=== PATIENT | male | born 1965 | race African-American/Black ===

== ENCOUNTER 2020-01-25 11:56 | Emergency (ER) | payer MEDICAID, OTHER ==
[~2020-01-25] VITALS: Ht 175.3 cm; Wt 68.0 kg
[2020-01-25 14:06] LABS: Basophils # (auto) 0 10 ^3/uL (0-0.2); Basophils % (auto) 0.2 % (0.0-2.0); Eosinophils # (auto) 0 10 ^3/uL (0-0.8); Hematocrit 40.8 % (41.0-53.0); Hemoglobin 13.9 g/dL (13.5-17.5); Lymphocytes % (auto) 15.6 % (10.0-50.0); Mean Corpuscular Hemoglobin 30.7 pg (28.0-32.0); Mean Corpuscular Hgb Conc. 34.1 g/dL (32.0-36.0); Mean Corpuscular Volume 90.1 fL (80.0-100.0); Monocytes # (auto) 0.8 10 ^3/uL (0-1.3); Monocytes % (auto) 11.5 % (0.0-12.0); Neutrophils # (auto) 4.9 10 ^3/uL (1.6-8.6); Neutrophils % (auto) 72.7 % (37.0-80.0); Nucleated Red Blood Cells % 0.1 %; Platelet Count (auto) 148 10^3/uL (140-450); Red Blood Cells 4.52 10^6/uL (4.5-5.90); Red Cell Distribution Width 12.4 % (11.8-14.3); White Blood Cell 6.7 10^3/uL (4.4-10.8)
[2020-01-25 14:15] LABS: Albumin 3.4 g/dL (3.4-5.0); Anion Gap 9 (5-15); Blood Urea Nitrogen 11 mg/dL (7-18); Calcium 8.2 mg/dL (8.5-10.1); Carbon Dioxide 25 mmol/L (21-32); Chloride 97 mmol/L (98-107); Glucose 352 mg/dL (74-106); Potassium 3.5 mmol/L (3.5-5.1); Sodium 131 mmol/L (136-145)
[2020-01-25 14:23] LABS: Alanine Aminotransferase 24 U/L (16-61); Alkaline Phosphatase 96 U/L (45-117); Aspartate Aminotransferase 29 U/L (15-37); BUN/Creatinine Ratio 5.6; Bilirubin, Total 0.6 mg/dL (0.2-1.0); GFR African American 46 mL/min; GFR Non-African American 38 mL/min; INR 1.17 (0.9-1.15); Partial Thromboplastin Time 30.9 sec (23.64-32.05)
[2020-01-25] MEDS ORDERED: SODIUM CHLORIDE 0.9% 1,000 ML IV ONE (14:30)
[2020-01-25 18:13] VITALS: BP 109/62
== END 2020-01-25 18:22 | disposition home or self-care (01) ==
LOC: ER 11:56
DX: R53.1 Weakness (principal); R05 Cough; R09.81 Nasal congestion; R51 Headache; E11.9 Type 2 diabetes mellitus without complications; Z87.891 Personal history of nicotine dependence
CPT/HCPCS: 36415; 70450; 71046; 80053; 84484; 85025; 85610; 85730

== ENCOUNTER 2025-08-03 06:47 | Inpatient (IN) | payer MEDICAID ==
[~2025-08-03] VITALS: Ht 177.8 cm; Wt 63.7 kg
[~2025-08-03 06:47] MED LIST: IBUP-1456 PO
--- NOTE | 2025-08-03 07:07 | ECG ---
[facility] Test Date: 2025-08-03 Test Time: 06:51:50 Pat Name: REJI WELLS Department: Room: 0251T Gender: M Instrumentation Manager: SHUKRI : 1965 Requested By: REINALDO ALCANTAR Order Number: [id number] Reading MD: Russell Nugent Measurements Intervals [place] Rate: 83 P: 83 RI: 161 QRS: -74 QRSD: 99 T: 31 QT: 381 QTc: 448 Interpretive Statements Sinus rhythm Left anterior fascicular block Abnormal R-wave progression, late transition Electronically Signed On 08-10-2025 18:55:41 PDT by Russell Nugent Please click the below link to view image of tracing.
--- NOTE | 2025-08-03 07:14 | ED.PDOC ---
History of Present Illness HPI Comments 60 year old male presents to the ED via EMS with a chief complaint of generalized weakness onset 2 days. Per EMS, patient has been experiencing generalized weakness for the past 2 days. This morning he woke up on the floor, was having difficulty getting up, does not recall how he got on the floor. Family called 911, due to patient not recalling events. PMHx DM, hypotension, liver disease, anemia. Denies fever, chills, numbness/tingling, chest pain, nausea, vomiting, diarrhea, headache, dysuria, hematuria. No other symptoms or modifying factors present at this time. Chief Complaint: General Weakness Time Seen by MD: 06:50 Reviewed Notes: Medications, Allergies Allergies: Coded Allergies: NO KNOWN ALLERGIES (Unverified , 01/25/20) Home Meds Active Scripts Ibuprofen (Ibuprofen) 800 Mg Tab, 1 TAB PO TID PRN, #30 TAB 0 Refills Prov:MARY BARNES 10/22/22 Information Source: Patient, Emergency Med Personnel Mode of Arrival: EMS Severity: Moderate Timing: Days Duration: Since onset Prehospital treatment: None Past Medical History PAST MEDICAL HISTORY: Anemia, DM, Hypotension, Liver Surgical History: Denies all surgeries Family History Family History: Unknown Family History (Other): Lupus Social History Smoker: Quit Less Than 1 Year Alcohol: Occasionally Drugs: Denies Drug Use Lives In: Home Constitutional: reports: weakness; denies: chills, diaphoresis, fatigue, fever, malaise, sweats, others EENTM: denies: blurred vision, double vision, ear bleeding, ear discharge, ear drainage, ear pain, ear ringing, eye pain, eye redness, hearing loss, mouth keshav n, mouth swelling, nasal discharge, nose bleeding, nose congestion, nose pain, photophobia, tearing, throat pain, throat swelling, voice changes, others Respiratory: denies: cough, hemoptysis, orthopnea, SOB at rest, shortness of breath, SOB with excertion, stridor, wheezing, others Cardiovascular: denies: chest pain, dizzy spells, diaphoresis, Dyspnea on exertion, edema, irregular heart beat, left arm pain, lightheadedness, palpitations, PND, syncope, others Gastrointestinal: denies: abdomen distended, abdominal pain, blood streaked bowels, constipated, diarrhea, dysphagia, difficulty swallowing, hematemesis, melena, nausea, poor appetite, poor fluid intake, rectal bleeding, rectal pain, vomiting, others Genitourinary: denies: burning, dysuria, flank pain, frequency, hematuria, incontinence, penile discharge, penile sore, pain, testicle pain, testicle swelling, urgency, others Neurological: reports: weakness; denies: dizziness, fainting, headache, left sided numbness, left sided weakness, numbness, paresthesia, pre-existing deficit, right sided numbness, right sided weakness, seizure, speech problems, tingling, tremors, others Musculoskeletal: denies: back pain, gout, joint pain, joint swelling, muscle pain, muscle stiffness, neck pain, others Integumetry: denies: bruises, change in color, change in hair/nails, dryness, laceration, lesions, lumps, rash, wounds, others Allergic/Immunocompromised: denies: Difficulty Healing, Frequent Infections, Hives, Itching, others Hematologic/Lymphatic: denies: anemia, blood clots, easy bleeding, easy bruising, swollen glands, others Endocrine: denies: excessive hunger, excessive sweating, excessive thirst, excessive urination, flushing, intolerance to cold, intolerance to heat, unexplained weight gain, unexplained weight loss, others Psychiatric: denies: anxiety, bipolar disorder, depression, hopeless, panic disorder, schizophrenia, sleepless, suicidal, others All Other Systems: Reviewed and Negative Physical Exam General Appearance: Moderate Distress, Thin HEENT: Normal ENT Inspection, Pharynx Normal, TMs Normal Neck: Full Range of Motion, Non-Tender, Normal, Normal Inspection Respiratory: Chest Non-Tender, Lungs Clear, No Accessory Muscle Use, No Respiratory Distress, Normal Breath Sounds Cardiovascular: No Edema, No JVD, No Murmur, No Gallop, Normal Peripheral Pulses, Regular Rate/Rhythm Breast Exam: Deferred Gastrointestinal: No Organomegaly, Non Tender, No Pulsatile Mass, Normal Bowel Sounds, Soft Genitalia: Deferred Pelvic: Deferred Rectal: Deferred Extremities: No calf tenderness, Normal capillary refill, Normal inspection, Normal range of motion, Non-tender, No pedal edema Musculoskeletal : Apperance: Normal Neurologic: Alert, refrigeration lead II-XII nml as Tested, No Motor Deficits, Normal Affect, Normal Mood, No Sensory Deficits Cerebellar Function: NOT DONE Reflexes: NOT DONE Skin: Dry, Normal Color, Warm Peripheral Pulses: 3+ Radial (R), 3+ Radial (L) Lymphatic: No Adenopathy Was a procedure done? Was a procedure done?: No EKG EKG : Pulse Rate (adult): 83 Cardiac Rhythm: NSR Differential Dx Considerations may include: Anemia Electrolyte imbalance X-Ray, Labs, Meds, VS Vital Signs Date Time Temp Pulse Resp B/P (MAP) Pulse Ox O2 Delivery O2 Flow Rate FiO2 08/03/25 07:41 84 19 99 Room Air* 0 21 08/03/25 07:14 83 08/03/25 06:51 98.0 89 16 149/89 96 98.0 08/03/25 06:51 83 Lab Test 08/03/25 07:26 Range/Units White Blood Count Pending Red Blood Count Pending Hemoglobin Pending Hematocrit Pending Mean Corpuscular Volume Pending Mean Corpuscular Hemoglobin Pending Mean Corpuscular Hemoglobin Concent Pending Red Cell Distribution Width Pending Platelet Count Pending Mean Platelet Volume Pending Neutrophils (%) (Auto) Pending Lymphocytes (%) (Auto) Pending Monocytes (%) (Auto) Pending Basophils (%) (Auto) Pending Neutrophils # (Auto) Pending Lymphocytes # (Auto) Pending Monocytes # (Auto) Pending Sodium Level 114 *L 136-145 mmol/L Potassium Level 3.9 3.5-5.1 mmol/L Chloride Level 79 L 98-107 mmol/L Carbon Dioxide Level 27 20-31 mmol/L Anion Gap 8 5-15 Blood Urea Nitrogen < 5 L 9-23 mg/dL Creatinine 1.02 0.700-1.30 mg/dL Glomerular Filtration Rate Calc 83 >90 mL/min BUN/Creatinine Ratio 4.9 L 10.0-20.0 Serum Glucose 160 H 74-106 mg/dL Calcium Level 8.6 L 8.7-10.4 mg/dL Troponin I High Sensitivity 9 </=54 ng/L Patient alert. Complaining of generalized weakness unable to get out of bed. Vitals stable. Answering all questions. Establish intravenous access. Was given fluids. Continue monitoring. Time of 1ST Reevaluation: 07:20 Reevaluation 1ST: Unchanged Patient Education/Counseling: Diagnosis, Treatment, Prognosis Family Education/Counseling: No Family Present SEPSIS Sepsis Screen Date sepsis recognized/suspect: Aug 03, 2025 Time Sepsis recognized/suspect: 0656 Recent Procedure: No On Antibiotic Therapy: No Respiratory Rate >20: No Heart Rate >90: No Temp<36 C (96.8 F) or >38.3 C: No SBP <90 or MAP <65 mmHG: No New Acute Mental Status Change: No Is the patient on CPAP, BIPAP,: No Physician Orders Electrocardigram (08/03/25 07:57) Electrocardigram (08/03/25 09:57) Complete Blood Count (08/03/25 06:59) Vital Signs Date Time Temp Pulse Resp B/P (MAP) Pulse Ox O2 Delivery O2 Flow Rate FiO2 08/03/25 07:41 84 19 99 Room Air* 0 21 08/03/25 07:14 83 08/03/25 06:51 98.0 89 16 149/89 96 98.0 08/03/25 06:51 83 Laboratory Tests Test 08/03/25 07:26 White Blood Count Pending Departure 1 Departure Time of Disposition: 07:27 Impression: Primary Impression: Hyponatremia Additional Impression: Generalized weakness Disposition: ADMITTED INPATIENT Admit to: Med Surg Condition: Guarded Critical Care Note Critical Care Time?: No Stability Stability form required: No Heart Score Heart Score: Heart Score Response (Comments) Value History Slightly Suspicious 0 EKG Normal 0 Age 45-64 1 Risk Factors 1 or 2 risk factors 1 Troponin Normal limit 0 Total 2 I personally scribed for REINALDO ALCANTAR MD ([email or web address]) on 08/03/25 at 07:14. Electronically submitted by Chichi Chew ([email or web address]). REINALDO ALCANTAR MD Aug 03, 2025 07:14
[2025-08-03 07:41] VITALS: PULSE 84; RESP 19; O2SAT 99
[2025-08-03 07:46] LABS: Anion Gap 8 (5-15); Carbon Dioxide 27 mmol/L (20-31); Potassium 3.9 mmol/L (3.5-5.1)
[2025-08-03 07:53] LABS: BUN/Creatinine Ratio 4.9 (10.0-20.0); Blood Urea Nitrogen < 5 mg/dL (9-23); Calcium 8.6 mg/dL (8.7-10.4); Chloride 79 mmol/L (98-107); Glucose 160 mg/dL (74-106)
[2025-08-03 07:54] LABS: Sodium 114 mmol/L (136-145)
[2025-08-03 07:58] LABS: Hematocrit 35.6 % (41.0-53.0); Hemoglobin 12.9 g/dL (13.5-17.5); Mean Corpuscular Hemoglobin 33.3 pg (28.0-32.0); Mean Corpuscular Volume 91.9 fL (80.0-100.0); Nucleated Red Blood Cells % 0.2 %
[2025-08-03] MEDS: SODIUM CHLORIDE 0.9% 1,000 ML IV ONE ×2 (08:03→09:02)
--- NOTE | 2025-08-03 09:23 | DVHHP2 ---
Admitting Diagnosis: Generalized weakness History of Present Illness 60 y/o male patient with history of hypotension, diabetes, liver disease, anemia presents with complaint of generalized weakness. Patient states he woke up on the floor this morning and had difficulty getting up, which prompted family to call EMS. While in the emergency department the patient was evaluated by the provider, As per provider: Labs, vital signs, and imagining monitored. Patient will be admitted for further evaluation and treatment. I discussed admission with the patient/family and is in agreement to treatment plan. Allergies: Coded Allergies: NO KNOWN ALLERGIES (Unverified , 01/25/20) Home Meds Active Scripts Ibuprofen (Ibuprofen) 800 Mg Tab, 1 TAB PO TID PRN, #30 TAB 0 Refills Prov:MARY BARNES 10/22/22 Current Medications Current Medications Medications (Trade) Dose Ordered Sig/Slim Route PRN Reason Start Time Stop Time Status Last Admin Sodium Chloride 1,000 ml @ 120 mls/hr Q8H20M IV 08/03/25 09:30 08/03/25 13:13 DC 08/03/25 09:30 Acetaminophen/ Hydrocodone Bitart (Meridian 5/325MG Tab) 1 tab Q4HP PRN PO MODERATE PAIN (4-6 PAIN SCALE) 08/03/25 09:30 Temazepam (Restoril) 15 mg QHSP PRN PO FOR INSOMNIA 08/03/25 09:30 Ondansetron HCl (Zofran) 4 mg Q4HP PRN IV NAUSEA / VOMITING 08/03/25 09:30 Docusate Sodium (Colace Capsule) 100 mg BIDPRN PRN PO FOR CONSTIPATION 08/03/25 09:30 Enoxaparin Sodium (Lovenox) 40 mg DAILY SC 08/03/25 10:00 08/03/25 11:02 Acetaminophen (Tylenol Tablet) 650 mg Q6HP PRN PO PAIN SCALE 1-3 OR TEMP>100.4 08/03/25 09:30 Morphine Sulfate 2 mg Q4HPRN PRN IV SEVERE PAIN (7-10 PAIN SCALE) 08/03/25 09:30 Nitroglycerin (Ntrostat Sublingual) 0.4 mg Q5MINP PRN SL FOR CHEST PAIN 08/03/25 09:30 Morphine Sulfate 2 mg Q30M PRN IV FOR CHEST PAIN 08/03/25 09:30 Diagnostic Test (Pha) (Accu-Chek Comfort Curve T) 1 strip ACHS 08/03/25 11:30 08/03/25 14:36 DC 08/03/25 13:25 Insulin Human Regular (InsuLIN R) HS SC 08/03/25 22:00 08/03/25 14:48 DC Insulin Human Regular (InsuLIN R) AC SC 08/03/25 11:30 08/03/25 13:13 DC Dextrose 50 ml UD PRN IV Blood Sugar LESS THAN 60 08/03/25 09:30 08/03/25 14:36 DC Famotidine (Pepcid Tablet) 40 mg DAILY PO 08/03/25 10:00 08/03/25 11:02 Furosemide (Lasix Injection) 40 mg BID IV 08/03/25 10:00 08/04/25 22:01 Sodium Chloride 1,000 ml @ 75 mls/hr [id number] IV 08/03/25 13:15 08/03/25 13:15 Diagnostic Test (Pha) (Accu-Chek Comfort Curve T) 1 strip IQ4HR 08/03/25 16:00 08/03/25 20:44 Insulin Human Regular (InsuLIN R) IQ4HR SC 08/03/25 16:00 08/03/25 16:15 Dextrose 50 ml UD PRN IV Blood Sugar LESS THAN 60 08/03/25 13:15 Review of Systems Constitutional: denies chills, denies fever, denies malaise Eyes: denies eye pain, denies vision change ENT: denies ear pain, denies headache, denies nasal congestion, denies painful swallowing, denies voice change Cardiovascular: denies chest pain, denies edema, denies orthopnea, denies palpitations, denies paroxysmal nocturnal dyspnea Respiratory: denies cough, denies shortness of breath Gastrointestinal: denies constipation, denies diarrhea, denies nausea, denies vomiting Genitourinary: denies dysuria, denies frequent urination, denies urethral discharge Musculoskeletal: denies back pain, denies joint pain, denies muscle pain Skin: denies bruising, denies itching, denies rash Neurological: denies focal weakness, denies headache, denies sensory changes Psychiatric: denies anxiety, denies depression Endocrine: denies polydipsia, denies polyuria Hematologic/Lymphatic: denies easy bleeding, denies easy bruising, denies enlarged lymph nodes Allergic/Immunologic: denies allergy, denies hives Vital Signs Vital Signs Date Time Temp Pulse Resp B/P (MAP) Pulse Ox O2 Delivery O2 Flow Rate FiO2 08/03/25 19:20 98 18 98 Room Air* 0 21 08/03/25 19:20 98.1 132/79 (96) 98.1 Physical Exam General Appearance: alert, no distress HEENT: EOMI, PERRLA, normal external inspect of ears, no icterus, no nasal drainage Neck: no carotid bruit, no jugular venous distention (JVD), no lymphadenopathy Chest: normal thorax Respiratory: clear to auscultation, normal air movement Cardiovascular: regular rate and rhythm, no diastolic murmur, no jugular venous distention (JVD), no rub, no systolic murmur Abdominal: soft, no hepatomegaly, no mass, no splenomegaly, no tenderness Genitourinary: grossly normal external Musculoskeletal: no joint tenderness, no swelling Extremities: normal pulses, no calf tenderness, no clubbing, no cyanosis, no edema Skin: no bruising, no jaundice, no rash Neurological: alert, No focal deficit SEPSIS Sepsis Screen Date sepsis recognized/suspect: Aug 03, 2025 Time Sepsis recognized/suspect: 655 Recent Procedure: No On Antibiotic Therapy: No Respiratory Rate >20: No Heart Rate >90: No Temp<36 C (96.8 F) or >38.3 C: No SBP <90 or MAP <65 mmHG: No New Acute Mental Status Change: No Is the patient on CPAP, BIPAP,: No Physician Orders Electrocardigram (08/03/25 07:57) Electrocardigram (08/03/25 09:57) Admit (08/03/25 09:18) Code Status (08/03/25 09:18) Oxygen Per Hour (08/03/25 09:18) Hydrocodone-Acet 5/325mg Tab (Meridian 5/32 (08/03/25 09:30) Temazepam (Restoril) (08/03/25 09:30) Ondansetron Hcl (Zofran) (08/03/25 09:30) Docusate Sodium Capsule (Colace Capsule) (08/03/25 09:30) Enoxaparin Sodium (Lovenox) (08/03/25 10:00) Fall Risk Precautions In Place QSHIFT (08/03/25 09:18) Complete Blood Count (08/04/25 04:00) Comprehensive Metabolic Panel (08/04/25 04:00) Condition: Serious (08/03/25 09:18) Acetaminophen Tablet (Tylenol Tablet) (08/03/25 09:30) Morphine Sulfate Injection (08/03/25 09:30) Sequential Compression Device (08/03/25 ) Seizure Precautions (08/03/25 ) *[facility] (08/03/25 09:18) Nitroglycerin Sublingual (Ntrostat Subli (08/03/25 09:30) Morphine Sulfate Injection (08/03/25 09:30) Stat Ekg For Chest Pain (08/03/25 09:18) Notify Md Of Changes From Base (08/03/25 09:18) Wet Finisher For 24 Hours (08/03/25 09:18) Emergency Dysrhythmia Protocol (08/03/25 09:18) Rhythm Strips Once Every Shift (08/03/25 09:18) Oxygen By Nasal Cannula (08/03/25 09:18) Regular Diet (08/03/25 Breakfast) Famotidine Tablet (Pepcid Tablet) (08/03/25 10:00) Communication Order (08/03/25 09:43) Furosemide Injection (Lasix Injection) (08/03/25 10:00) Hepatitis C Antibody (08/03/25 12:17) Hepatitis B Surface Antigen (08/03/25 12:17) Sodium Chloride 0.9% (08/03/25 13:15) Glucose Blood (Accu-Chek Comfort Curve T (08/03/25 16:00) Insulin R (Human) (Insulin R) (08/03/25 16:00) Dextrose 50% Syringe (08/03/25 13:15) Moving Worker (08/03/25 ) Vital Signs Date Time Temp Pulse Resp B/P (MAP) Pulse Ox O2 Delivery O2 Flow Rate FiO2 08/03/25 19:20 98 18 98 Room Air* 0 21 08/03/25 19:20 98.1 98 18 132/79 (96) 98 98.1 08/03/25 18:00 113 16 132/76 (94) 97 08/03/25 16:43 84 08/03/25 16:00 84 16 166/91 (116) 97 08/03/25 14:00 91 18 164/91 (115) 97 08/03/25 12:00 91 08/03/25 12:00 98.3 91 19 117/71 (86) 97 98.3 08/03/25 12:00 91 08/03/25 10:00 97.7 83 19 92/70 (77) 97 97.7 08/03/25 10:00 92/70 08/03/25 09:30 97.9 88 16 92/70 (77) 98 97.9 08/03/25 09:30 85 20 98 Room Air* 0 21 08/03/25 08:00 98.3 83 19 144/85 (104) 97 98.3 08/03/25 07:41 84 19 99 Room Air* 0 21 08/03/25 07:14 83 08/03/25 06:51 98.0 89 16 149/89 96 98.0 08/03/25 06:51 83 Laboratory Tests Test 08/03/25 07:26 White Blood Count 4.4 10^3/uL (4.4-10.8) Medications Medications Dose Ordered Sig/Slim Route Start Time Stop Time Status Last Admin Dose Admin Diagnostic Test (Pha) 1 strip ACHS 08/03/25 11:30 08/03/25 14:36 DC 08/03/25 13:25 Diagnostic Test (Pha) 1 strip IQ4HR 08/03/25 16:00 08/03/25 20:44 Enoxaparin Sodium 40 mg DAILY SC 08/03/25 10:00 08/03/25 11:02 Famotidine 40 mg DAILY PO 08/03/25 10:00 08/03/25 11:02 Insulin Human Regular IQ4HR SC 08/03/25 16:00 08/03/25 16:15 Sodium Chloride 1,000 ml @ 75 mls/hr [id number] IV 08/03/25 13:15 08/03/25 13:15 Results Labs Test 08/03/25 16:05 08/03/25 15:19 08/03/25 13:30 08/03/25 12:59 Range/Units POC Glucose 246 H 70-106 mg/dl Parathyroid Hormone (Intact) 105.4 H 18.4-80.1 pg/mL Urine Color Colorless Yellow Urine Clarity Clear Clear Urine pH 6.5 5.0-9.0 Urine Specific [place] 1.005 1.001-1.035 Urine Protein Negative Negative Urine Ketones Trace Negative Urine Blood Negative Negative /uL Urine Nitrite Negative Negative Urine Bilirubin Negative Negative Urine Urobilinogen Normal Negative mg/dL Urine Leukocyte Esterase Negative Negative /uL Urine RBC None seen 0 - 3 /hpf Urine Microscopic WBC < 1 0-3 /HPF Urine Squamous Epithelial Cells None seen <5 /hpf Urine Bacteria None seen None Seen /hpf Urine Creatinine 29.38 L 30.0-125.0 mg/dL Urine Protein/Creatinine Ratio 0.20 Urine Sodium 43 40-220 mmol/L Urine Glucose Normal Normal mg/dL Urine Total Protein < 6.0 1-14 mg/dL Urine Opiates Screen Neg NEGATIVE Urine Fentanyl Screen Neg NEGATIVE Urine Barbiturates Screen Neg NEGATIVE Urine Phencyclidine Screen Neg NEGATIVE Urine Amphetamines Screen Neg NEGATIVE Urine Benzodiazepines Screen Neg NEGATIVE Urine Cocaine Screen Neg NEGATIVE Urine Cannabinoids Screen Neg NEGATIVE Sodium Level 119 #*L 136-145 mmol/L Potassium Level 3.7 3.5-5.1 mmol/L Chloride Level 83 L 98-107 mmol/L Carbon Dioxide Level 27 20-31 mmol/L Anion Gap 9 5-15 Blood Urea Nitrogen 6 L 9-23 mg/dL Creatinine 1.00 0.700-1.30 mg/dL Glomerular Filtration Rate Calc 85 >90 mL/min BUN/Creatinine Ratio 6.0 L 10.0-20.0 Serum Glucose 198 H 74-106 mg/dL Hemoglobin A1c 8.3 H <5.7 % A1C Serum Osmolality 248 L 278-298 mOsm/kg Calcium Level 8.3 L 8.7-10.4 mg/dL Phosphorus Level 2.8 2.4-5.1 mg/dL Magnesium Level 1.5 L 1.6-2.6 mg/dL Creatine Kinase 1328 H 46-171 U/L B-Type Natriuretic Peptide 29.93 0-100 pg/mL Vitamin D 25-Hydroxy 7.8 L 30.0-100 ng/mL Plasma/Serum Blood Alcohol < 3.0 <10 mg/dL Test 08/03/25 07:26 Range/Units White Blood Count 4.4 4.4-10.8 10^3/uL Red Blood Count 3.87 L 4.5-5.90 10^6/uL Hemoglobin 12.9 L 13.5-17.5 g/dL Hematocrit 35.6 L 41.0-53.0 % Mean Corpuscular Volume 91.9 80.0-100.0 fL Mean Corpuscular Hemoglobin 33.3 H 28.0-32.0 pg Mean Corpuscular Hemoglobin Concent 36.2 H 32.0-36.0 g/dL Red Cell Distribution Width 14.8 H 11.8-14.3 % Platelet Count 103 L 140-450 10^3/uL Mean Platelet Volume 7.7 6.9-10.8 fL Neutrophils (%) (Auto) 43.5 37.0-80.0 % Lymphocytes (%) (Auto) 39.4 10.0-50.0 % Monocytes (%) (Auto) 12.8 H 0.0-12.0 % Eosinophils (%) (Auto) 2.9 0.0-7.0 % Basophils (%) (Auto) 1.4 0.0-2.0 % Neutrophils # (Auto) 1.9 1.6-8.6 10 ^3/uL Lymphocytes # (Auto) 1.7 0.4-5.4 10 ^3/uL Monocytes # (Auto) 0.6 0-1.3 10 ^3/uL Eosinophils # (Auto) 0.1 0-0.8 10 ^3/uL Basophils # (Auto) 0.1 0-0.2 10 ^3/uL Nucleated Red Blood Cells 0.2 % Troponin I High Sensitivity 9 </=54 ng/L Plan 1. Hyponatremia Monitor, daily labs 2. Generalized weakness r/t hyponatremia Monitor, PT eval 3. DM II with hyperglycemia Monitor, insulin ss Plan discussed with: Patient, Other BLAZE BARRON NP Aug 03, 2025 09:23
[2025-08-03 09:30] VITALS: PULSE 85; RESP 20; O2SAT 98
[2025-08-03] MEDS ORDERED: ONDANSETRON HCL 4 MG/2 ML VIAL IV PRN (09:30)
[2025-08-03] MEDS ORDERED: DEXTROSE (50%) 50ML SYRG IV PRN ×2 (09:30→13:15)
[2025-08-03] MEDS ORDERED: DOCUSATE SOD 100 MG CAP PO PRN (09:30)
[2025-08-03] MEDS ORDERED: MORPHINE SULFATE INJ 2 MG/ml SYRG IV PRN ×2 (09:30)
[2025-08-03] MEDS ORDERED: ACETAMINOPHEN 325 MG TAB PO PRN (09:30)
[2025-08-03] MEDS: SODIUM CHLORIDE 0.9% 1,000 ML IV SCH ×2 (09:30→13:15)
[2025-08-03] MEDS ORDERED: NITROGLYCERIN 0.4 MG SL TAB SL PRN (09:30)
[2025-08-03] MEDS ORDERED: TEMAZEPAM 15 MG CAP PO PRN (09:30)
[2025-08-03] MEDS: FUROSEMIDE 40 MG/4 ML VIAL IV SCH (10:00)
[2025-08-03] MEDS: ENOXAPARIN SOD 40 MG/0.4 ML SYRINGE SC SCH (11:02)
[2025-08-03] MEDS: FAMOTIDINE 20 MG TAB PO SCH (11:02)
[2025-08-03] MEDS: InsuLIN REG 1unit/0.01ml Soln (100units/ml) SC SCH ×2 (11:30→16:15)
[2025-08-03] MEDS: ACCU-CHEK COMFORT CURVE STRIP VI SCH ×2 (11:38→16:07)
--- NOTE | 2025-08-03 12:24 | DVHINCON2 ---
Date of service: Aug 03, 2025 Referring Physician Shannan Diehl, nurse practitioner Reason for Consultation Hyponatremia History of Present Illness Patient is a 60-year-old male with past medical history significant for Anemia, DM, Hypotension, seizures, and alcoholic liver cirrhosis is admitted for generalized weakness inability to get up from the floor and diarrhea for few days. On admission patient found to have serum sodium was 114 mEq per L. in the ER patient was given 3% sodium chloride and normal saline IV bolus nephrology is consulted to help in the management of hyponatremia Past Medical History PAST MEDICAL HISTORY: Anemia, DM, Hypotension, alcoholic Liver cirrhosis, seizure Past Surgical History Surgical History: Denies all surgeries Allergies: Coded Allergies: NO KNOWN ALLERGIES (Unverified , 01/25/20) Home Meds Active Scripts Ibuprofen (Ibuprofen) 800 Mg Tab, 1 TAB PO TID PRN, #30 TAB 0 Refills Prov:MARY BARNES 10/22/22 Current Medications Current Medications Medications (Trade) Dose Ordered Sig/Slim Route PRN Reason Start Time Stop Time Status Last Admin Sodium Chloride 1,000 ml @ 120 mls/hr Q8H20M IV 08/03/25 09:30 08/03/25 13:13 DC 08/03/25 09:30 Acetaminophen/ Hydrocodone Bitart ([place] 5/325MG Tab) 1 tab Q4HP PRN PO MODERATE PAIN (4-6 PAIN SCALE) 08/03/25 09:30 Temazepam (Restoril) 15 mg QHSP PRN PO FOR INSOMNIA 08/03/25 09:30 Ondansetron HCl (Zofran) 4 mg Q4HP PRN IV NAUSEA / VOMITING 08/03/25 09:30 Docusate Sodium (Colace Capsule) 100 mg BIDPRN PRN PO FOR CONSTIPATION 08/03/25 09:30 Enoxaparin Sodium (Lovenox) 40 mg DAILY SC 08/03/25 10:00 08/03/25 11:02 Acetaminophen (Tylenol Tablet) 650 mg Q6HP PRN PO PAIN SCALE 1-3 OR TEMP>100.4 08/03/25 09:30 Morphine Sulfate 2 mg Q4HPRN PRN IV SEVERE PAIN (7-10 PAIN SCALE) 08/03/25 09:30 Nitroglycerin (Ntrostat Sublingual) 0.4 mg Q5MINP PRN SL FOR CHEST PAIN 08/03/25 09:30 Morphine Sulfate 2 mg Q30M PRN IV FOR CHEST PAIN 08/03/25 09:30 Diagnostic Test (Pha) (Accu-Chek Comfort Curve T) 1 strip ACHS 08/03/25 11:30 08/03/25 11:38 Insulin Human Regular (InsuLIN R) HS SC 08/03/25 22:00 Insulin Human Regular (InsuLIN R) AC SC 08/03/25 11:30 08/03/25 13:13 DC Dextrose 50 ml UD PRN IV Blood Sugar LESS THAN 60 08/03/25 09:30 Famotidine (Pepcid Tablet) 40 mg DAILY PO 08/03/25 10:00 08/03/25 11:02 Furosemide (Lasix Injection) 40 mg BID IV 08/03/25 10:00 08/04/25 22:01 Sodium Chloride 1,000 ml @ 75 mls/hr [id number] IV 08/03/25 13:15 UNV Diagnostic Test (Pha) (Accu-Chek Comfort Curve T) 1 strip IQ4HR 08/03/25 16:00 UNV Insulin Human Regular (InsuLIN R) IQ4HR SC 08/03/25 16:00 UNV Dextrose 50 ml UD PRN IV Blood Sugar LESS THAN 60 08/03/25 13:15 UNV Review of Systems All 12 item review of systems reviewed with the patient nonsignificant except what is mentioned in the history of present illness H&P Exam Vital Signs/I&O Vital Sign Date Time Temp Pulse Resp B/P (MAP) Pulse Ox O2 Delivery O2 Flow Rate FiO2 08/03/25 12:00 98.3 91 19 117/71 (86) 97 98.3 08/03/25 09:30 Room Air* 0 21 Physical Exam Patient is awake alert Lungs clear to auscultation bilaterally Cardiac exam regular rate and rhythm GI soft nontender was normal Extremities no clubbing cyanosis or edema Neuro nonfocal Labs/Diagnostic Data Labs/Diagnostic Data Laboratory Tests Test 08/03/25 11:38 08/03/25 07:26 Range/Units POC Glucose 230 H 70-106 mg/dl White Blood Count 4.4 4.4-10.8 10^3/uL Red Blood Count 3.87 L 4.5-5.90 10^6/uL Hemoglobin 12.9 L 13.5-17.5 g/dL Hematocrit 35.6 L 41.0-53.0 % Mean Corpuscular Volume 91.9 80.0-100.0 fL Mean Corpuscular Hemoglobin 33.3 H 28.0-32.0 pg Mean Corpuscular Hemoglobin Concent 36.2 H 32.0-36.0 g/dL Red Cell Distribution Width 14.8 H 11.8-14.3 % Platelet Count 103 L 140-450 10^3/uL Mean Platelet Volume 7.7 6.9-10.8 fL Neutrophils (%) (Auto) 43.5 37.0-80.0 % Lymphocytes (%) (Auto) 39.4 10.0-50.0 % Monocytes (%) (Auto) 12.8 H 0.0-12.0 % Eosinophils (%) (Auto) 2.9 0.0-7.0 % Basophils (%) (Auto) 1.4 0.0-2.0 % Neutrophils # (Auto) 1.9 1.6-8.6 10 ^3/uL Lymphocytes # (Auto) 1.7 0.4-5.4 10 ^3/uL Monocytes # (Auto) 0.6 0-1.3 10 ^3/uL Eosinophils # (Auto) 0.1 0-0.8 10 ^3/uL Basophils # (Auto) 0.1 0-0.2 10 ^3/uL Nucleated Red Blood Cells 0.2 % Sodium Level 114 *L 136-145 mmol/L Potassium Level 3.9 3.5-5.1 mmol/L Chloride Level 79 L 98-107 mmol/L Carbon Dioxide Level 27 20-31 mmol/L Anion Gap 8 5-15 Blood Urea Nitrogen < 5 L 9-23 mg/dL Creatinine 1.02 0.700-1.30 mg/dL Glomerular Filtration Rate Calc 83 >90 mL/min BUN/Creatinine Ratio 4.9 L 10.0-20.0 Serum Glucose 160 H 74-106 mg/dL Calcium Level 8.6 L 8.7-10.4 mg/dL Troponin I High Sensitivity 9 </=54 ng/L Assessment Hyponatremia due to dehydration History of alcoholic liver cirrhosis Diabetes mellitus type 2 Hypertension Anemia of chronic kidney disease Recommendations Closely monitor fluid and electrolytes Avoid nephrotoxic medications Pantoja catheter Strict I&Os Repeat serum sodium every 4 hours Avoid rapid sodium correction Decrease IVF to NS at 75 cc/hour KCL replacement Insulin sliding scale Check urine electrolytes, protein excretion and osmolarity Neurology consult We will continue to follow Patient seen and examined by myself. I discussed my plan of care with the patient and primary nurse at the bedside I would like to thank Shannan for the consult, will follow up Plan discussed with: Patient EVER DILLON MD Aug 03, 2025 12:24
[2025-08-03 14:07] LABS: Urine Protein, UAD Negative (Negative)
[2025-08-03 14:09] LABS: Carbon Dioxide 27 mmol/L (20-31)
[2025-08-03 14:14] LABS: Anion Gap 9 (5-15)
[2025-08-03 14:15] LABS: BUN/Creatinine Ratio 6.0 (10.0-20.0)
[2025-08-03 14:16] LABS: Chloride 83 mmol/L (98-107); Potassium 3.7 mmol/L (3.5-5.1)
[2025-08-03 14:17] LABS: Blood Urea Nitrogen 6 mg/dL (9-23); Calcium 8.3 mg/dL (8.7-10.4); Glucose 198 mg/dL (74-106); Sodium 119 mmol/L (136-145)
[2025-08-03 14:24] LABS: Magnesium 1.5 mg/dL (1.6-2.6)
[2025-08-03 18:17] LABS: Amphetamine Screen, Urine Neg (NEGATIVE); Barbiturate Scree,Urine Neg (NEGATIVE); Benzodiazephine Screen, Urine Neg (NEGATIVE); Cannabinoid Screen, Urine Neg (NEGATIVE); Cocaine Screen, Urine Neg (NEGATIVE); Opiate Scree,Urine Neg (NEGATIVE); Phencyclidine Screen, Urine Neg (NEGATIVE); Protein, Urine < 6.0 mg/dL (1-14)
[2025-08-03 19:20] VITALS: PULSE 98; RESP 18; O2SAT 98
[2025-08-03] MEDS: HYDROcodone-ACET 5/325MG TAB PO PRN (21:46)
[2025-08-03] MEDS ORDERED: InsuLIN REG 1unit/0.01ml Soln (100units/ml) SC SCH (22:00)
[2025-08-03 22:16] VITALS: PULSE 81; RESP 17; O2SAT 97
[2025-08-03 22:37] VITALS: BP 146/90; PULSE 87; RESP 17; TEMP 98.4; O2SAT 97
[2025-08-04] VITALS (8 sets, daily range): BP systolic 104–135; BP diastolic 69–78; PULSE 56–133; RESP 17–20; TEMP 97.8–98.7; O2SAT 93–100
--- NOTE | 2025-08-04 09:46 | DVHPN2 ---
Progress Note - Dictate Date Seen: Aug 04, 2025 Medical Necessity Reason Pt with a Central, PICC or Fol: No vital signs Vital Sign Date Time Temp Pulse Resp B/P (MAP) Pulse Ox O2 Delivery O2 Flow Rate FiO2 08/04/25 09:12 117/62 08/04/25 05:00 98.4 95 18 98 98.4 08/03/25 22:16 Room Air* 0 21 Total Intake and Output 08/03/25 08/03/25 08/04/25 15:00 23:00 07:00 Intake Total 1720 ml 240 ml Output Total 750 ml Balance 1720 ml -510 ml medications Current Medications Medications Dose Ordered Sig/Slim Route Start Time Stop Time Status Last Admin Dose Admin Acetaminophen/ Hydrocodone Bitart 1 tab Q4HP PRN PO 08/03/25 09:30 08/04/25 09:37 1 TAB Temazepam 15 mg QHSP PRN PO 08/03/25 09:30 Ondansetron HCl 4 mg Q4HP PRN IV 08/03/25 09:30 Docusate Sodium 100 mg BIDPRN PRN PO 08/03/25 09:30 Enoxaparin Sodium 40 mg DAILY SC 08/03/25 10:00 08/04/25 09:11 40 MG Acetaminophen 650 mg Q6HP PRN PO 08/03/25 09:30 Morphine Sulfate 2 mg Q4HPRN PRN IV 08/03/25 09:30 Nitroglycerin 0.4 mg Q5MINP PRN SL 08/03/25 09:30 Morphine Sulfate 2 mg Q30M PRN IV 08/03/25 09:30 Famotidine 40 mg DAILY PO 08/03/25 10:00 08/04/25 09:11 40 MG Furosemide 40 mg BID IV 08/03/25 10:00 08/04/25 22:01 Sodium Chloride 1,000 ml @ 75 mls/hr [id number] IV 08/03/25 13:15 08/04/25 01:00 75 MLS/HR Diagnostic Test (Pha) 1 strip IQ4HR 08/03/25 16:00 08/04/25 08:05 1 STRIP Insulin Human Regular IQ4HR SC 08/03/25 16:00 08/04/25 04:53 3 UNITS Dextrose 50 ml UD PRN IV 08/03/25 13:15 laboratory and microbiology Laboratory Tests 08/03/25 12:59 08/03/25 07:26 Test 08/03/25 12:59 Range/Units Serum Glucose 198 H 74-106 mg/dL Problem List 1. Hyponatremia Monitor, daily labs 2. Generalized weakness r/t hyponatremia Monitor, PT eval 3. DM II with hyperglycemia Monitor, insulin ss 4. Elevated CK level Monitor, trend and monitor renal function 5. Liver cirrhosis Monitor, monitor daily labs Assessment/Plan Subjective: Patient is awake and alert. Objective: Patient states he was very weak and that he was down on the ground for some time because he could not get up. Patient has severe hyponatremia. Patient states he drinks lots of water. Nephrology was consulted for assistance with severe hyponatremia. Unable to exclude if patient possibly had a seizure due to being found down on the ground. Patient does not really remember the events of that day. Patient also states he takes oral iron at home and he has neuropathy. Plan: Physical therapy evaluation for generalized weakness. Hyponatremia management per nephrology. Sodium levels are improving. And the DC planning in 1 to 2 days. Plan discussed with: Patient, Other BLAZE BARRON NP Aug 04, 2025 09:46
[2025-08-04] MEDS: MAGNESIUM SULFATE 1GM/100ML 100 ML IV SCH (10:36)
[2025-08-04 10:44] LABS: Hematocrit 32.5 % (41.0-53.0); Hemoglobin 11.7 g/dL (13.5-17.5); Mean Corpuscular Hemoglobin 33.7 pg (28.0-32.0); Mean Corpuscular Volume 93.8 fL (80.0-100.0); Nucleated Red Blood Cells % 0.1 %
[2025-08-04 10:59] LABS: Albumin 3.5 g/dL (3.2-4.8); Alkaline Phosphatase 77 U/L (46-116); Anion Gap 9 (5-15); Bilirubin, Total 0.7 mg/dL (0.2-1.0); Carbon Dioxide 27 mmol/L (20-31); Potassium 3.7 mmol/L (3.5-5.1); Total Protein 6.2 g/dL (5.7-8.2)
[2025-08-04 11:03] LABS: Alanine Aminotransferase 55 U/L (7-40); BUN/Creatinine Ratio 4.4 (10.0-20.0); Blood Urea Nitrogen < 5 mg/dL (9-23); Calcium 8.3 mg/dL (8.7-10.4); Chloride 91 mmol/L (98-107); Glucose 206 mg/dL (74-106); Sodium 127 mmol/L (136-145)
--- NOTE | 2025-08-04 11:52 | DVHPN2 ---
Progress Note Date Seen: Aug 04, 2025 Medical Necessity Reason Pt with a Central, PICC or Fol: No Subjective Patient reports: No new complaints Other Systems: Patient seen and examined by myself today in follow-up Objective vital signs Vital Sign Date Time Temp Pulse Resp B/P (MAP) Pulse Ox O2 Delivery O2 Flow Rate FiO2 08/04/25 09:12 117/62 08/04/25 09:00 98.7 128 17 98 98.7 08/03/25 22:16 Room Air* 0 21 Total Intake and Output 08/03/25 08/03/25 08/04/25 15:00 23:00 07:00 Intake Total 1720 ml 240 ml Output Total 750 ml Balance 1720 ml -510 ml medications Current Medications Medications Dose Ordered Sig/Slim Route Start Time Stop Time Status Last Admin Dose Admin Acetaminophen/ Hydrocodone Bitart 1 tab Q4HP PRN PO 08/03/25 09:30 08/04/25 09:37 1 TAB Temazepam 15 mg QHSP PRN PO 08/03/25 09:30 Ondansetron HCl 4 mg Q4HP PRN IV 08/03/25 09:30 Docusate Sodium 100 mg BIDPRN PRN PO 08/03/25 09:30 Enoxaparin Sodium 40 mg DAILY SC 08/03/25 10:00 08/04/25 09:11 40 MG Acetaminophen 650 mg Q6HP PRN PO 08/03/25 09:30 Morphine Sulfate 2 mg Q4HPRN PRN IV 08/03/25 09:30 Nitroglycerin 0.4 mg Q5MINP PRN SL 08/03/25 09:30 Morphine Sulfate 2 mg Q30M PRN IV 08/03/25 09:30 Famotidine 40 mg DAILY PO 08/03/25 10:00 08/04/25 09:11 40 MG Furosemide 40 mg BID IV 08/03/25 10:00 08/04/25 22:01 Sodium Chloride 1,000 ml @ 75 mls/hr [id number] IV 08/03/25 13:15 08/04/25 01:00 75 MLS/HR Diagnostic Test (Pha) 1 strip IQ4HR 08/03/25 16:00 08/04/25 11:45 1 STRIP Insulin Human Regular IQ4HR SC 08/03/25 16:00 08/04/25 11:45 4 UNITS Dextrose 50 ml UD PRN IV 08/03/25 13:15 Magnesium Sulfate/ Dextrose 100 ml @ 100 mls/hr Q1HR IV 08/04/25 10:00 08/04/25 12:59 08/04/25 11:41 100 MLS/HR Examination: LUNGS:Normal, CVS:Normal, MSK:Normal laboratory and microbiology Laboratory Tests 08/04/25 10:07 Test 08/04/25 10:07 Range/Units Serum Glucose 206 H 74-106 mg/dL Problem List/Assessment/Plan Problem List/Assessment/Plan Hyponatremia due to dehydration Rapid correction of hyponatremia History of alcoholic liver cirrhosis Diabetes mellitus type 2 Hypertension Anemia of chronic kidney disease Recommendations Reverse rapid correction of hyponatremia DC IV NS Start IVF 1/2 NS with 20 KCL at 75 cc/hour Pantoja catheter Strict I&Os Repeat serum sodium every 4 hours Avoid rapid sodium correction KCL replacement Insulin sliding scale Neurology consult We will continue to follow Plan discussed with: Patient My Orders My Orders Orders - EVER DILLON MD Procedure Category Date Status Time Hepatitis C Antibody LAB 08/03/25 In Process 12:17 Hepatitis B Surface LAB 08/03/25 In Process Antigen 12:17 Sodium Chloride 0.9% PHA 08/03/25 In Process 13:15 Glucose Blood PHA 08/03/25 In Process (Accu-Chek Comfort 16:00 Insulin R (Human) PHA 08/03/25 In Process (Insulin R) 16:00 Dextrose 50% Syringe PHA 08/03/25 In Process 13:15 1/2 Ns W Potassium PHA 08/04/25 Verified 20meq 12:00 EVER DILLON MD Aug 04, 2025 11:52
[2025-08-04] MEDS: SOD CHL 0.45% WITH 20MEQ KCL 1,000 ML IV SCH (15:25)
[2025-08-04] MEDS ORDERED: DEXTROSE (50%) 50ML SYRG IV PRN (15:45)
[2025-08-04] MEDS: ACCU-CHEK COMFORT CURVE STRIP VI SCH (17:57)
[2025-08-04] MEDS: InsuLIN REG 1unit/0.01ml Soln (100units/ml) SC SCH (17:57)
[2025-08-05] VITALS (7 sets, daily range): BP systolic 114–143; BP diastolic 64–89; PULSE 70–113; RESP 16–20; TEMP 97.5–98; O2SAT 92–100
[2025-08-05] MEDS: GABAPENTIN 300 MG CAP PO SCH (05:48)
--- NOTE | 2025-08-05 09:37 | DVHPN2 ---
Progress Note - Dictate Date Seen: Aug 05, 2025 Medical Necessity Reason Pt with a Central, PICC or Fol: No vital signs Vital Sign Date Time Temp Pulse Resp B/P (MAP) Pulse Ox O2 Delivery O2 Flow Rate FiO2 08/05/25 05:00 98.0 80 20 143/89 (107) 100 98.0 08/04/25 20:00 Room Air* 0 21 Total Intake and Output 08/04/25 08/04/25 08/05/25 15:00 23:00 07:00 Intake Total 100 ml 600 ml 1500 ml Output Total 600 ml 1500 ml Balance 100 ml 0 ml 0 ml medications Current Medications Medications Dose Ordered Sig/Slim Route Start Time Stop Time Status Last Admin Dose Admin Acetaminophen/ Hydrocodone Bitart 1 tab Q4HP PRN PO 08/03/25 09:30 08/04/25 20:58 1 TAB Temazepam 15 mg QHSP PRN PO 08/03/25 09:30 Ondansetron HCl 4 mg Q4HP PRN IV 08/03/25 09:30 Docusate Sodium 100 mg BIDPRN PRN PO 08/03/25 09:30 Enoxaparin Sodium 40 mg DAILY SC 08/03/25 10:00 08/04/25 09:11 40 MG Acetaminophen 650 mg Q6HP PRN PO 08/03/25 09:30 Morphine Sulfate 2 mg Q4HPRN PRN IV 08/03/25 09:30 Nitroglycerin 0.4 mg Q5MINP PRN SL 08/03/25 09:30 Morphine Sulfate 2 mg Q30M PRN IV 08/03/25 09:30 Famotidine 40 mg DAILY PO 08/03/25 10:00 08/04/25 09:11 40 MG Potassium Chloride/Sodium Chloride 1,000 ml @ 75 mls/hr [id number] IV 08/04/25 12:00 08/05/25 01:20 75 MLS/HR Diagnostic Test (Pha) 1 strip ACHS 08/04/25 17:00 08/05/25 05:48 1 STRIP Insulin Human Regular ACHS SC 08/04/25 17:00 08/04/25 17:57 4 UNITS Dextrose 50 ml UD PRN IV 08/04/25 15:45 Gabapentin 300 mg TID PO 08/05/25 06:00 08/05/25 05:48 300 MG laboratory and microbiology Laboratory Tests 08/04/25 10:07 Test 08/04/25 10:07 Range/Units Serum Glucose 206 H 74-106 mg/dL Problem List 1. Hyponatremia Monitor, daily labs 2. Generalized weakness r/t hyponatremia Monitor, PT eval 3. DM II with hyperglycemia Monitor, insulin ss 4. Elevated CK level Monitor, trend and monitor renal function 5. Liver cirrhosis Monitor, monitor daily labs Assessment/Plan Subjective Patient is awake and alert. Objective Patient was admitted for hyponatremia. Patient states he was drinking lots of water. Patient was placed on a water fluid restriction. Patient has a mild ADELA. Patient has elevated CK levels. Repeat levels are pending. Plan Repeat labs. Arrange for home health. DC planning possibly for tomorrow. Plan discussed with: Patient, Other BLAZE BARRON NP Aug 05, 2025 09:37
[2025-08-05 12:14] LABS: Albumin 3.6 g/dL (3.2-4.8); Alkaline Phosphatase 78 U/L (46-116); Anion Gap 8 (5-15); Bilirubin, Total 0.5 mg/dL (0.2-1.0); Carbon Dioxide 23 mmol/L (20-31); Chloride 99 mmol/L (98-107); Magnesium 2.0 mg/dL (1.6-2.6); Potassium 4.2 mmol/L (3.5-5.1); Total Protein 6.3 g/dL (5.7-8.2)
[2025-08-05 12:18] LABS: Alanine Aminotransferase 62 U/L (7-40); BUN/Creatinine Ratio 4.4 (10.0-20.0); Blood Urea Nitrogen < 5 mg/dL (9-23); Calcium 8.5 mg/dL (8.7-10.4); Glucose 203 mg/dL (74-106); Sodium 130 mmol/L (136-145)
--- NOTE | 2025-08-05 13:26 | DVH ---
EXAM: XY R KNEE 3V XRAY CLINICAL INDICATION: PAIN TECHNIQUE: XY R KNEE 3V XRAY Comparison: XY L KNEE 3V XRAY on DOS: 08/05/25 FINDINGS/IMPRESSION: There is no evidence of acute fracture or dislocation. Severe right knee osteoarthritis. The alignment is anatomical. There is no radiopaque foreign body.
--- NOTE | 2025-08-05 13:26 | DVH ---
EXAM: XY L KNEE 3V XRAY CLINICAL INDICATION: PAIN TECHNIQUE: XY L KNEE 3V XRAY Comparison: XY R KNEE 3V XRAY on DOS: 08/05/25 FINDINGS/IMPRESSION: There is no evidence of acute fracture or dislocation. Moderate left knee osteoarthritis. The alignment is anatomical. There is no radiopaque foreign body.
--- NOTE | 2025-08-05 14:38 | DVHPN2 ---
Progress Note Date Seen: Aug 05, 2025 Medical Necessity Reason Pt with a Central, PICC or Fol: No Subjective Patient reports: No new complaints Other Systems: Patient seen and examined by myself today in follow-up Objective vital signs Vital Sign Date Time Temp Pulse Resp B/P (MAP) Pulse Ox O2 Delivery O2 Flow Rate FiO2 08/05/25 13:00 97.7 75 16 126/77 (93) 100 97.7 08/05/25 08:00 Room Air* 0 21 Total Intake and Output 08/04/25 08/04/25 08/05/25 15:00 23:00 07:00 Intake Total 100 ml 600 ml 1500 ml Output Total 600 ml 1500 ml Balance 100 ml 0 ml 0 ml medications Current Medications Medications Dose Ordered Sig/Slim Route Start Time Stop Time Status Last Admin Dose Admin Acetaminophen/ Hydrocodone Bitart 1 tab Q4HP PRN PO 08/03/25 09:30 08/04/25 20:58 1 TAB Temazepam 15 mg QHSP PRN PO 08/03/25 09:30 Ondansetron HCl 4 mg Q4HP PRN IV 08/03/25 09:30 Docusate Sodium 100 mg BIDPRN PRN PO 08/03/25 09:30 Enoxaparin Sodium 40 mg DAILY SC 08/03/25 10:00 08/05/25 10:07 40 MG Acetaminophen 650 mg Q6HP PRN PO 08/03/25 09:30 Morphine Sulfate 2 mg Q4HPRN PRN IV 08/03/25 09:30 Nitroglycerin 0.4 mg Q5MINP PRN SL 08/03/25 09:30 Morphine Sulfate 2 mg Q30M PRN IV 08/03/25 09:30 Famotidine 40 mg DAILY PO 08/03/25 10:00 08/05/25 10:06 40 MG Potassium Chloride/Sodium Chloride 1,000 ml @ 75 mls/hr [id number] IV 08/04/25 12:00 08/05/25 01:20 75 MLS/HR Diagnostic Test (Pha) 1 strip ACHS 08/04/25 17:00 08/05/25 11:48 1 STRIP Insulin Human Regular ACHS SC 08/04/25 17:00 08/05/25 11:57 6 UNITS Dextrose 50 ml UD PRN IV 08/04/25 15:45 Gabapentin 300 mg TID PO 08/05/25 06:00 08/05/25 13:28 300 MG Examination: LUNGS:Normal, CVS:Normal, MSK:Normal laboratory and microbiology Laboratory Tests 08/05/25 06:22 08/04/25 10:07 Test 08/05/25 06:22 Range/Units Serum Glucose 203 H 74-106 mg/dL Problem List/Assessment/Plan Problem List/Assessment/Plan Hyponatremia due to dehydration Rapid correction of hyponatremia History of alcoholic liver cirrhosis Diabetes mellitus type 2 Hypertension Anemia of chronic kidney disease Recommendations Reverse rapid correction of hyponatremia DC IV NS Start IVF / NS with 20 KCL at 100 cc/hour Pantoja catheter Strict I&Os Repeat electrolytes Avoid rapid sodium correction KCL replacement Insulin sliding scale Neurology consult We will continue to follow Plan discussed with: Patient My Orders My Orders Orders - EVER DILLON MD Procedure Category Date Status Time Comprehensive LAB 08/06/25 Verified Metabolic Panel 05:00 Comprehensive LAB 08/07/25 Verified Metabolic Panel 05:00 Comprehensive LAB 08/08/25 Verified Metabolic Panel 05:00 Comprehensive LAB 08/09/25 Verified Metabolic Panel 05:00 EVER DILLON MD Aug 05, 2025 14:38
[2025-08-05] MEDS: SOD CHL 0.45% WITH 20MEQ KCL 1,000 ML IV SCH (14:45)
[2025-08-06 01:19] VITALS: BP 102/76; PULSE 125; RESP 18; TEMP 97.8; O2SAT 97
[2025-08-06] MEDS ORDERED: SOD CHL 0.9%/ KCL 20MEQ 1,000 ML IV ONE (01:26)
[2025-08-06 04:39] LABS: Albumin 3.4 g/dL (3.2-4.8); Alkaline Phosphatase 72 U/L (46-116); Anion Gap 9 (5-15); BUN/Creatinine Ratio 3.7 (10.0-20.0); Bilirubin, Total 0.4 mg/dL (0.2-1.0); Carbon Dioxide 24 mmol/L (20-31); Chloride 102 mmol/L (98-107); Glucose 103 mg/dL (74-106); Potassium 4.1 mmol/L (3.5-5.1); Total Protein 5.9 g/dL (5.7-8.2)
[2025-08-06 04:41] LABS: Alanine Aminotransferase 70 U/L (7-40); Blood Urea Nitrogen 5 mg/dL (9-23); Calcium 8.5 mg/dL (8.7-10.4); Sodium 135 mmol/L (136-145)
[2025-08-06 05:00] VITALS: BP 109/71; PULSE 110; RESP 18; TEMP 98.2; O2SAT 98
[2025-08-06 08:00] VITALS: PULSE 75; O2SAT 98
[2025-08-06 08:06] LABS: Hematocrit 29.6 % (41.0-53.0); Hemoglobin 10.7 g/dL (13.5-17.5); Mean Corpuscular Hemoglobin 34.5 pg (28.0-32.0); Mean Corpuscular Volume 95.6 fL (80.0-100.0); Nucleated Red Blood Cells % 0.2 %
[2025-08-06 08:16] LABS: Albumin 3.4 g/dL (3.2-4.8); Alkaline Phosphatase 73 U/L (46-116); Anion Gap 9 (5-15); Bilirubin, Total 0.5 mg/dL (0.2-1.0); Carbon Dioxide 23 mmol/L (20-31); Chloride 102 mmol/L (98-107); Potassium 4.5 mmol/L (3.5-5.1); Total Protein 6.0 g/dL (5.7-8.2)
[2025-08-06 08:22] LABS: Alanine Aminotransferase 72 U/L (7-40); BUN/Creatinine Ratio 3.9 (10.0-20.0); Blood Urea Nitrogen < 5 mg/dL (9-23); Calcium 8.6 mg/dL (8.7-10.4); Glucose 110 mg/dL (74-106); Sodium 134 mmol/L (136-145)
[2025-08-06 09:00] VITALS: BP 127/78; PULSE 80; RESP 16; TEMP 97.8; O2SAT 98
--- NOTE | 2025-08-06 10:50 | DVHPN2 ---
Progress Note Date Seen: Aug 06, 2025 Medical Necessity Reason Pt with a Central, PICC or Fol: No Subjective Patient reports: No new complaints Other Systems: Patient seen and examined by myself today in follow-up Objective vital signs Vital Sign Date Time Temp Pulse Resp B/P (MAP) Pulse Ox O2 Delivery O2 Flow Rate FiO2 08/06/25 09:00 97.8 80 16 127/78 (94) 98 97.8 08/05/25 20:00 Room Air* 0 21 Total Intake and Output 08/05/25 08/05/25 08/06/25 15:00 23:00 07:00 Intake Total 700 ml 1400 ml Output Total 800 ml 850 ml Balance -100 ml 550 ml medications Current Medications Medications Dose Ordered Sig/Slim Route Start Time Stop Time Status Last Admin Dose Admin Acetaminophen/ Hydrocodone Bitart 1 tab Q4HP PRN PO 08/03/25 09:30 08/05/25 21:45 1 TAB Temazepam 15 mg QHSP PRN PO 08/03/25 09:30 Ondansetron HCl 4 mg Q4HP PRN IV 08/03/25 09:30 Docusate Sodium 100 mg BIDPRN PRN PO 08/03/25 09:30 Enoxaparin Sodium 40 mg DAILY SC 08/03/25 10:00 08/06/25 10:24 40 MG Acetaminophen 650 mg Q6HP PRN PO 08/03/25 09:30 Morphine Sulfate 2 mg Q4HPRN PRN IV 08/03/25 09:30 Nitroglycerin 0.4 mg Q5MINP PRN SL 08/03/25 09:30 Morphine Sulfate 2 mg Q30M PRN IV 08/03/25 09:30 Famotidine 40 mg DAILY PO 08/03/25 10:00 08/06/25 10:25 40 MG Diagnostic Test (Pha) 1 strip ACHS 08/04/25 17:00 08/06/25 06:21 1 STRIP Insulin Human Regular ACHS SC 08/04/25 17:00 08/05/25 22:16 10 UNITS Dextrose 50 ml UD PRN IV 08/04/25 15:45 Gabapentin 300 mg TID PO 08/05/25 06:00 08/06/25 06:26 300 MG Potassium Chloride/Sodium Chloride 1,000 ml @ 100 mls/hr Q10H IV 08/05/25 14:45 Examination: LUNGS:Normal, CVS:Normal, MSK:Normal laboratory and microbiology Laboratory Tests 08/06/25 07:14 Test 08/06/25 07:14 Range/Units Serum Glucose 110 H 74-106 mg/dL Problem List/Assessment/Plan Problem List/Assessment/Plan Acute kidney injury superimposed Chronic Kidney Disease secondary hemodynamic mediated Hyponatremia due excessive and convulsive H2O intake Alcoholic liver cirrhosis Diabetes mellitus type 2 Hypertension Atrial fibrillation with RVR Anemia of chronic kidney disease Recommendations Kidney function is improving Increased urine output DC IV NS Strict I&Os Fluid restrictions Repeat electrolytes Avoid rapid sodium correction KCL replacement Insulin sliding scale We will continue to follow Plan discussed with: Patient My Orders My Orders Orders - EVER DILLON MD Procedure Category Date Status Time Sod Chl 0.45% With PHA 08/05/25 In Process 20meq Kcl 14:45 EVER DILLON MD Aug 06, 2025 10:50
[2025-08-06 12:06] VITALS: BP 126/65; PULSE 63; RESP 14; TEMP 97.6; O2SAT 99
--- NOTE | 2025-08-06 14:44 | DVHDS2 ---
Discharge Summary Date of Admission Aug 03, 2025 at 09:18 Date of Discharge: Aug 06, 2025 Admitting Diagnosis hyponatremia Labs/Diagnostic Data: Laboratory Results Test 08/06/25 11:19 08/06/25 07:14 08/05/25 06:22 08/04/25 10:07 POC Glucose 387 mg/dl (70-106) White Blood Count 4.2 10^3/uL (4.4-10.8) Red Blood Count 3.10 10^6/uL (4.5-5.90) Hemoglobin 10.7 g/dL (13.5-17.5) Hematocrit 29.6 % (41.0-53.0) Mean Corpuscular Volume 95.6 fL (80.0-100.0) Mean Corpuscular Hemoglobin 34.5 pg (28.0-32.0) Mean Corpuscular Hemoglobin Concent 36.1 g/dL (32.0-36.0) Red Cell Distribution Width 15.3 % (11.8-14.3) Platelet Count 107 10^3/uL (140-450) Mean Platelet Volume 7.9 fL (6.9-10.8) Neutrophils (%) (Auto) 38.3 % (37.0-80.0) Lymphocytes (%) (Auto) 43.6 % (10.0-50.0) Monocytes (%) (Auto) 14.0 % (0.0-12.0) Eosinophils (%) (Auto) 3.7 % (0.0-7.0) Basophils (%) (Auto) 0.4 % (0.0-2.0) Neutrophils # (Auto) 1.6 10 ^3/uL (1.6-8.6) Lymphocytes # (Auto) 1.8 10 ^3/uL (0.4-5.4) Monocytes # (Auto) 0.6 10 ^3/uL (0-1.3) Eosinophils # (Auto) 0.2 10 ^3/uL (0-0.8) Basophils # (Auto) 0 10 ^3/uL (0-0.2) Nucleated Red Blood Cells 0.2 % Sodium Level 134 mmol/L (136-145) Potassium Level 4.5 mmol/L (3.5-5.1) Chloride Level 102 mmol/L (98-107) Carbon Dioxide Level 23 mmol/L (20-31) Anion Gap 9 (5-15) Blood Urea Nitrogen < 5 mg/dL (9-23) Creatinine 1.28 mg/dL (0.700-1.30) Glomerular Filtration Rate Calc 63 mL/min (>90) BUN/Creatinine Ratio 3.9 (10.0-20.0) Serum Glucose 110 mg/dL (74-106) Calcium Level 8.6 mg/dL (8.7-10.4) Total Bilirubin 0.5 mg/dL (0.2-1.0) Aspartate Amino Transferase (AST) 147 U/L (13-40) Alanine Aminotransferase (ALT) 72 U/L (7-40) Alkaline Phosphatase 73 U/L (46-116) Total Protein 6.0 g/dL (5.7-8.2) Albumin 3.4 g/dL (3.2-4.8) Uric Acid 7.1 mg/dL (3.7-9.2) Phosphorus Level 2.5 mg/dL (2.4-5.1) Magnesium Level 2.0 mg/dL (1.6-2.6) Test 08/03/25 15:19 08/03/25 13:30 08/03/25 12:59 08/03/25 07:26 Parathyroid Hormone (Intact) 105.4 pg/mL (18.4-80.1) Urine Color Colorless (Yellow) Urine Clarity Clear (Clear) Urine pH 6.5 (5.0-9.0) Urine Specific [place] 1.005 (1.001-1.035) Urine Protein Negative (Negative) Urine Ketones Trace (Negative) Urine Blood Negative /uL (Negative) Urine Nitrite Negative (Negative) Urine Bilirubin Negative (Negative) Urine Urobilinogen Normal mg/dL (Negative) Urine Leukocyte Esterase Negative /uL (Negative) Urine RBC None seen /hpf (0 - 3) Urine Microscopic WBC < 1 /HPF (0-3) Urine Squamous Epithelial Cells None seen /hpf (<5) Urine Bacteria None seen /hpf (None Seen) Urine Osmolality 160 mOsm/kg Urine Creatinine 29.38 mg/dL (30.0-125.0) Urine Protein/Creatinine Ratio 0.20 Urine Sodium 43 mmol/L (40-220) Urine Glucose Normal mg/dL (Normal) Urine Total Protein < 6.0 mg/dL (1-14) Urine Opiates Screen Neg (NEGATIVE) Urine Fentanyl Screen Neg (NEGATIVE) Urine Barbiturates Screen Neg (NEGATIVE) Urine Phencyclidine Screen Neg (NEGATIVE) Urine Amphetamines Screen Neg (NEGATIVE) Urine Benzodiazepines Screen Neg (NEGATIVE) Urine Cocaine Screen Neg (NEGATIVE) Urine Cannabinoids Screen Neg (NEGATIVE) Hemoglobin A1c 8.3 % A1C (<5.7) Serum Osmolality 248 mOsm/kg (278-298) Creatine Kinase 1328 U/L (46-171) B-Type Natriuretic Peptide 29.93 pg/mL (0-100) Vitamin D 25-Hydroxy 7.8 ng/mL (30.0-100) Plasma/Serum Blood Alcohol < 3.0 mg/dL (<10) Troponin I High Sensitivity 9 ng/L (</=54) Other Laboratory Tests 08/06/25 07:14 Brief Hx & Hospital Course: The patient was admitted for hyponatremia with a history of liver cirrhosis and type 2 diabetes. The patient reported drinking large amounts of water prior to admission. Upon presentation, the patient had severe hyponatremia with a sodium level of 114, which subsequently improved to 134. The patient was placed on fluid restriction as part of the treatment. Additionally, the patient experienced mild acute kidney injury related to vasomotor nephropathy and had elevated CK levels. The patient's renal function did not improve, with a current GFR of 63 and creatinine of 1.28. The patient also had mild anemia with a hemoglobin of 10.7. During the hospital stay, the patient was seen and treated by a radio electrician. The patient's diabetes was managed with an insulin sliding scale due to hyperglycemia. The patient was ordered to undergo a Gutiérrez and Walker procedure, but refused to wait and left prior to the procedure being performed. Rudy is a patient with a history of liver cirrhosis and type 2 diabetes presenting with severe hyponatremia and mild acute kidney injury related to vasomotor nephropathy. Severe Hyponatremia Assessment: Patient presented with severe hyponatremia, initially at 114 mEq/L, which improved to 134 mEq/L. The etiology appears to be polydipsia, as the patient reported drinking large amounts of water. The patient was placed on fluid restriction as part of the management strategy. Plan: - Continue fluid restriction - Monitor serum sodium levels - Educate patient on appropriate fluid intake Acute Kidney Injury Assessment: Patient developed mild ADELA related to vasomotor nephropathy. Current renal function shows a GFR of 63 mL/min/1.73m and creatinine of 1.28 mg/dL. The patient was evaluated by a radio electrician during the admission. Plan: - Monitor renal function - Follow up with radio electrician as recommended Elevated Creatine Kinase Levels Assessment: Patient was noted to have elevated CK levels. The exact value and etiology were not specified. Plan: - Monitor CK levels - Investigate potential causes of CK elevation Anemia Assessment: Patient has anemia with a hemoglobin level of 10.7 g/dL. The etiology and chronicity of the anemia were not specified. Plan: - Monitor hemoglobin levels - Evaluate for underlying causes of anemia Liver Cirrhosis Assessment: Patient has a history of liver cirrhosis. No acute issues related to cirrhosis were mentioned. Plan: - Continue monitoring liver function Type 2 Diabetes with Hyperglycemia Assessment: Patient has type 2 diabetes with hyperglycemia. The patient was managed with an insulin sliding scale during the admission. Plan: - Continue insulin management as per sliding scale - Monitor blood glucose levels Condition at Discharge: Fair Final Diagnosis/Problems List 1. Hyponatremia Monitor, daily labs 2. Generalized weakness r/t hyponatremia Monitor, PT eval 3. DM II with hyperglycemia Monitor, insulin ss 4. Elevated CK level Monitor, trend and monitor renal function 5. Liver cirrhosis Discharge Disposition: Home Discharge Instruct/Medications Diet: Cardiac 2g Na,low cholest Activity: No Restrictions, As Tolerated Scheduled PRN Ibuprofen (Ibuprofen), 1 TAB PO TID PRN Discharge Statement: "Patient was advised to return to the ER or call 911 if any headaches, dizziness, shortness of breath, chest pain, abdominal pain, bleeding, fevers, or worsening of medical condition. Patient was counseled about treatment plan, medications, possible side effects, patientverbalized understanding. All questions were answered to the best of my ability. This discharge took greater then 30 minutes in planning, reviewing documentation, counseling the patient, and discussing with other team members." ASSESSMENT ASSESSMENT Assessment 1. Hyponatremia Monitor, daily labs 2. Generalized weakness r/t hyponatremia Monitor, PT eval 3. DM II with hyperglycemia Monitor, insulin ss 4. Elevated CK level Monitor, trend and monitor renal function 5. Liver cirrhosis [facility] Aug 06, 2025 14:44
[2025-08-09 11:09] LABS: Hepatitis B Surface Antigen Negative (Negative); Hepatitis C Antibody Negative (Negative)
== END 2025-08-06 13:55 | disposition left against medical advice (07) | DRG 426 ==
LOC: EDBD 06:47 → ER 06:47 → OVERFLOW 09:18 → TELE-EAST 22:16
PROVIDERS: ADMIT Nurse Practitioner; ATTEND Nurse Practitioner
DX: E87.1 Hypo-osmolality and hyponatremia (principal); N17.0 Acute kidney failure with tubular necrosis; K70.30 Alcoholic cirrhosis of liver without ascites; D63.1 Anemia in chronic kidney disease; E11.22 Type 2 diabetes mellitus with diabetic chronic kidney disease; N18.9 Chronic kidney disease, unspecified; E11.65 Type 2 diabetes mellitus with hyperglycemia; I12.9 Hypertensive chronic kidney disease with stage 1 through stage 4 chronic kidney disease, or unspecified chronic kidney disease; E86.0 Dehydration; R74.8 Abnormal levels of other serum enzymes; Z87.891 Personal history of nicotine dependence
CPT/HCPCS: 36415; 73562; 80048; 80053; 80307; 80320; 81001; 82306; 82550; 82553; 82570; 82962; 83036; 83735; 83880; 83930; 83935; 83970; 84100; 84156; 84300; 84484; 84550; 85025; 86803; 87340; 93005; 96360; 96361; 97116; 97163; 97530; G0378; J1815

== ENCOUNTER 2025-10-09 11:16 | Inpatient (IN) | payer MEDICAID ==
[~2025-10-09] VITALS: Ht 172.7 cm; Wt 74.2 kg
[2025-10-09 13:40] LABS: Hematocrit 43.8 % (41.0-53.0); Hemoglobin 14.9 g/dL (13.5-17.5); Mean Corpuscular Hemoglobin 32.3 pg (28.0-32.0); Mean Corpuscular Volume 95.2 fL (80.0-100.0); Nucleated Red Blood Cells % 0.0 %
[2025-10-09 13:46] LABS: Anion Gap 20 (5-15); Carbon Dioxide 24 mmol/L (20-31); Potassium 4.5 mmol/L (3.5-5.1)
[2025-10-09 13:47] LABS: Calcium 9.7 mg/dL (8.7-10.4)
[2025-10-09 13:52] LABS: BUN/Creatinine Ratio 19.1 (10.0-20.0)
--- NOTE | 2025-10-09 13:53 | ED.PDOC ---
History of Present Illness HPI Comments 60-year-old male brought in by ambulance with a prior medical history of liver, hypotension, neuropathy, diabetes, anemic and then chief complaint of N/V. Patient reports having nausea and vomiting associated with loss of appetite and pain when swallowing has been gradually worsening. Denies any other symptoms at this time. Denies chills, fever, /D, SOB, CP. No other associated symptoms, modifiers, recent injuries or sick contacts present at this time. Chief Complaint: Abdominal Pain Time Seen by MD: 13:20 Reviewed Notes: Nurses Notes, Medications, Allergies Allergies: Coded Allergies: NO KNOWN ALLERGIES (Unverified , 01/25/20) Home Meds Active Scripts Ibuprofen (Ibuprofen) 800 Mg Tab, 1 TAB PO TID PRN, #30 TAB 0 Refills Prov:MARY BARNES 10/22/22 Information Source: Patient Mode of Arrival: Ambulatory Severity: Moderate Timing: Came on: Gradually Duration: Since onset Prehospital treatment: None Past Medical History PAST MEDICAL HISTORY: Anemia, DM, Hypotension, Liver Past Medical History (Other): Neuropathy Surgical History: Denies all surgeries Family History Family History: Reviewed,noncontributory to illness, Unknown Family History (Other): Lupus Social History Smoker: Quit Less Than 1 Year Alcohol: Occasionally Drugs: Denies Drug Use Lives In: Home Constitutional: denies: chills, diaphoresis, fatigue, fever, malaise, sweats, weakness, others EENTM: denies: blurred vision, double vision, ear bleeding, ear discharge, ear drainage, ear pain, ear ringing, eye pain, eye redness, hearing loss, mouth pain, mouth swelling, nasal discharge, nose bleeding, nose congestion, nose pain, photophobia, tearing, throat pain, throat swelling, voice changes, others Respiratory: denies: cough, hemoptysis, orthopnea, SOB at rest, shortness of breath, SOB with excertion, stridor, wheezing, others Cardiovascular: denies: chest pain, dizzy spells, diaphoresis, Dyspnea on exertion, edema, irregular heart beat, left arm pain, lightheadedness, palpitations, PND, syncope, others Gastrointestinal: reports: abdominal pain (Epigastric pain), nausea, vomiting; denies: abdomen distended, blood streaked bowels, constipated, diarrhea, dysphagia, difficulty swallowing, hematemesis, melena, poor appetite, poor fluid intake, rectal bleeding, rectal pain, others Genitourinary: denies: burning, dysuria, flank pain, frequency, hematuria, incontinence, penile discharge, penile sore, pain, testicle pain, testicle swelling, urgency, others Neurological: denies: dizziness, fainting, headache, left sided numbness, left sided weakness, numbness, paresthesia, pre-existing deficit, right sided numbness, right sided weakness, seizure, speech problems, tingling, tremors, weakness, others Musculoskeletal: denies: back pain, gout, joint pain, joint swelling, muscle pain, muscle stiffness, neck pain, others Integumetry: denies: bruises, change in color, change in hair/nails, dryness, laceration, lesions, lumps, rash, wounds, others Allergic/Immunocompromised: denies: Difficulty Healing, Frequent Infections, Hives, Itching, others Hematologic/Lymphatic: denies: anemia, blood clots, easy bleeding, easy bruising, swollen glands, others Endocrine: denies: excessive hunger, excessive sweating, excessive thirst, excessive urination, flushing, intolerance to cold, intolerance to heat, unexplained weight gain, unexplained weight loss, others Psychiatric: denies: anxiety, bipolar disorder, depression, hopeless, panic disorder, schizophrenia, sleepless, suicidal, others All Other Systems: Reviewed and Negative Physical Exam Exam Comments Epigastric tenderness, loss of appetite, emesis General Appearance: No Apparent Distress, Normal HEENT: Normal ENT Inspection, Pharynx Normal, TMs Normal Neck: Full Range of Motion, Non-Tender, Normal, Normal Inspection Respiratory: Chest Non-Tender, Lungs Clear, No Accessory Muscle Use, No Respiratory Distress, Normal Breath Sounds Cardiovascular: No Edema, No JVD, No Murmur, No Gallop, Normal Peripheral Pulses, Regular Rate/Rhythm Breast Exam: Deferred Gastrointestinal: No Organomegaly, Non Tender, No Pulsatile Mass, Normal Bowel Sounds, Soft Genitalia: Deferred Pelvic: Deferred Rectal: Deferred Extremities: No calf tenderness, Normal capillary refill, Normal inspection, Normal range of motion, Non-tender, No pedal edema Musculoskeletal : Apperance: Normal Neurologic: Alert, public works manager II-XII nml as Tested, No Motor Deficits, Normal Affect, Normal Mood, No Sensory Deficits Cerebellar Function: Normal Reflexes: Normal Skin: Dry, Normal Color, Warm Lymphatic: No Adenopathy Was a procedure done? Was a procedure done?: No Differential Dx Considerations may include: ACS, CVA, viral syndrome, electrolyte, infectious etiology, acute cholecystitis, gastritis X-Ray, Labs, Meds, VS Vital Signs Date Time Temp Pulse Resp B/P (MAP) Pulse Ox O2 Delivery O2 Flow Rate FiO2 10/09/25 15:36 114 20 126/82 10/09/25 15:24 97.8 114 18 126/82 (97) 96 97.8 10/09/25 11:56 98.6 100 18 151/100 95 98.6 Lab Test 10/09/25 12:43 10/09/25 12:30 Range/Units White Blood Count 13.1 H 4.4-10.8 10^3/uL Red Blood Count 4.60 4.5-5.90 10^6/uL Hemoglobin 14.9 13.5-17.5 g/dL Hematocrit 43.8 41.0-53.0 % Mean Corpuscular Volume 95.2 80.0-100.0 fL Mean Corpuscular Hemoglobin 32.3 H 28.0-32.0 pg Mean Corpuscular Hemoglobin Concent 34.0 32.0-36.0 g/dL Red Cell Distribution Width 12.9 11.8-14.3 % Platelet Count 172 140-450 10^3/uL Mean Platelet Volume 8.4 6.9-10.8 fL Neutrophils (%) (Auto) 84.6 H 37.0-80.0 % Lymphocytes (%) (Auto) 10.9 10.0-50.0 % Monocytes (%) (Auto) 4.3 0.0-12.0 % Eosinophils (%) (Auto) 0.1 0.0-7.0 % Basophils (%) (Auto) 0.1 0.0-2.0 % Neutrophils # (Auto) 11.1 H 1.6-8.6 10 ^3/uL Lymphocytes # (Auto) 1.4 0.4-5.4 10 ^3/uL Monocytes # (Auto) 0.6 0-1.3 10 ^3/uL Eosinophils # (Auto) 0 0-0.8 10 ^3/uL Basophils # (Auto) 0 0-0.2 10 ^3/uL Nucleated Red Blood Cells 0.0 % Sodium Level 124 L 136-145 mmol/L Potassium Level 4.5 3.5-5.1 mmol/L Chloride Level 80 L 98-107 mmol/L Carbon Dioxide Level 24 20-31 mmol/L Anion Gap 20 H 5-15 Blood Urea Nitrogen 37 H 9-23 mg/dL Creatinine 1.94 H 0.700-1.30 mg/dL Glomerular Filtration Rate Calc 38 >90 mL/min BUN/Creatinine Ratio 19.1 10.0-20.0 Serum Glucose 252 H 74-106 mg/dL Calcium Level 9.7 8.7-10.4 mg/dL Urine Color Light-yellow Yellow Urine Clarity Clear Clear Urine pH 5.5 5.0-9.0 Urine Specific [place] 1.016 1.001-1.035 Urine Protein Trace H Negative Urine Ketones 1+ H Negative Urine Blood Negative Negative /uL Urine Nitrite Negative Negative Urine Bilirubin Negative Negative Urine Urobilinogen Normal Negative mg/dL Urine Leukocyte Esterase Negative Negative /uL Urine RBC <1 0 - 3 /hpf Urine Microscopic WBC 1 0-3 /HPF Urine Squamous Epithelial Cells None seen <5 /hpf Urine Bacteria None seen None Seen /hpf Urine Glucose Normal Normal mg/dL Current Medications Medications (Trade) Dose Ordered Sig/Slim Route Start Time Stop Time Status Last Admin Ondansetron HCl (Zofran) 4 mg ONCE ONCE IV 10/09/25 14:45 10/09/25 14:52 DC 10/09/25 15:37 Morphine Sulfate 4 mg ONCE ONCE IV 10/09/25 14:45 10/09/25 14:52 DC 10/09/25 15:36 Famotidine (Pepcid Injection) 20 mg ONCE ONCE IV 10/09/25 14:45 10/09/25 14:52 DC 10/09/25 15:36 Time of 1ST Reevaluation: 13:50 Reevaluation 1ST: Unchanged Patient Education/Counseling: Diagnosis, Treatment, Prognosis Family Education/Counseling: No Family Present SEPSIS Sepsis Screen Physician Orders Chest Portable (10/09/25 14:39) Ct Ab Pel Wo Con-No Oral Or Iv (10/09/25 16:13) Vital Signs Date Time Temp Pulse Resp B/P (MAP) Pulse Ox O2 Delivery O2 Flow Rate FiO2 10/09/25 15:36 114 20 126/82 10/09/25 15:24 97.8 114 18 126/82 (97) 96 97.8 10/09/25 11:56 98.6 100 18 151/100 95 98.6 Laboratory Tests Test 10/09/25 12:43 White Blood Count 13.1 10^3/uL (4.4-10.8) H Medications Medications Dose Ordered Sig/Slim Route Start Time Stop Time Status Last Admin Dose Admin Famotidine 20 mg ONCE ONCE IV 10/09/25 14:45 10/09/25 14:52 DC 10/09/25 15:36 Morphine Sulfate 4 mg ONCE ONCE IV 10/09/25 14:45 10/09/25 14:52 DC 10/09/25 15:36 Ondansetron HCl 4 mg ONCE ONCE IV 10/09/25 14:45 10/09/25 14:52 DC 10/09/25 15:37 Departure 1 Departure Time of Disposition: 17:31 (Patient presented with abdominal pain that was concerning for possible appendicits, gastritis, cholecystitis, colitis, gastroenteritis, sbo, or orther possible surgical emergency. Data: 1. I ordered and reviewed the result of at least 3 labs including a CBC, BMP, and Urinalysis. 2. I independently interpreted the following tests: CT Abdomen and Pelvis is concerning for possible cholecystitis .Risk:This patient has a high risk of morbidity due to further diagnostic testing or treatment and may suffer from an acute abdominal process disorder. Workup reveals intractable abdominal pain and concern for acute cholecystitis and patient should be admitted for further workup. and possible expert consultation. ) Impression: Primary Impression: Intractable abdominal pain Additional Impression: Acute cholecystitis Disposition: ADMITTED INPATIENT Admit to: Med Surg Condition: Guarded Critical Care Note Critical Care Time?: Yes Critical care comment: Intractable abdominal pain Authorized and Performed by: Carlos Shea MD Total critical care time: Approximately 37_ minutes Due to a high probability of clinically significant, life threatening deterioration, the patient required my highest level of preparedness to intervene emergently and I personally spent this critical care time directly and personally managing the patient. This critical care time included obtaining a history; examining the patient; pulse oximetry; ordering and review of studies; arranging urgent treatment with development of a management plan; evaluation of patient's response to treatment; frequent reassessment; and, discussions with other providers. This critical care time was performed to assess and manage the high probability of imminent, life-threatening deterioration that could result in multi-organ failure. It was exclusive of separately billable procedures and treating other patients and teaching time. Please see my other sections and the rest of the note for further information on patient assessment and treatment. Stability Stability form required: No I personally scribed for CARLOS SHEA MD ([email or web address]) on 10/09/25 at 13:53. Electronically submitted by Pankaj Edgra ([email or web address]). CARLOS SHEA MD Oct 09, 2025 13:53
[2025-10-09 13:55] LABS: Blood Urea Nitrogen 37 mg/dL (9-23); Chloride 80 mmol/L (98-107); Glucose 252 mg/dL (74-106); Sodium 124 mmol/L (136-145)
--- NOTE | 2025-10-09 15:06 | DVH ---
CHEST RADIOGRAPH Indication: cp Technique: Single frontal view of the chest was obtained Comparison: None FINDINGS: Lines and Tubes: None Lungs: No focal consolidation. Pleura: No effusion. No pneumothorax. Cardiomediastinal contours: Unremarkable Bones: No acute osseous abnormality. IMPRESSION: No acute cardiopulmonary disease.
[2025-10-09 15:24] LABS: Urine Protein, UAD TRACE (Negative)
[2025-10-09] MEDS: FAMOTIDINE (10MG/ML) 2ML VL IV ONE (15:36)
[2025-10-09] MEDS: MORPHINE SULFATE 4 MG/ML SYR/VIAL IV ONE ×2 (15:36→18:35)
[2025-10-09] MEDS: ONDANSETRON HCL 4 MG/2 ML VIAL IV ONE ×2 (15:37→18:35)
--- NOTE | 2025-10-09 16:55 | DVH ---
Exam: CT CT AB PEL WO CON-NO ORAL OR IV History: abdominal pain Comparison Study: PELVIS WO CONTRAST on DOS: 10/22/22, PL2CT on DOS: 10/22/22 Technique: Multidetector spiral CT of the abdomen was performed from lung bases to pubic symphysis. Imaging was performed without IV contrast. Axial, coronal and sagittal multiplanar reformats were obtained from the axial data set by the technologist. Radiation Dose : 1. Abdomen/Pelvis: CTDIvol 5.07 mGy, DLP 264.17 mGy*cm. Findings: Lower chest is unremarkable. Diffuse hepatic steatosis. The gallbladder is mildly distended. No biliary ductal dilatation. Pancreas is atrophic with numerous coarse calcifications, related to chronic pancreatitis. The spleen, adrenal glands, and kidneys are unremarkable. Scattered atherosclerotic plaque throughout the abdominal aorta which is otherwise normal in size. No acute bowel abnormality. Normal appendix. No pneumoperitoneum, ascites, or abscess. The urinary bladder is unremarkable. Unremarkable prostate. No lymphadenopathy. No acute or suspicious osseous lesions IMPRESSION: Mildly distended gallbladder. Ultrasound recommended for further assessment Hepatic steatosis. Sequelae of chronic pancreatitis. Radiation optimization: All CT scans at this facility use at least one of these dose optimization techniques: automated exposure control mA and/or kV adjustment per patient size (includes targeted exams where dose is matched to clinical indication) or iterative reconstruction.
[2025-10-09] MEDS: SODIUM CHLORIDE 0.9% 1,000 ML IV ONE (18:17)
--- NOTE | 2025-10-09 18:23 | DVH ---
ULTRASOUND ABDOMEN, LIMITED RIGHT UPPER QUADRANT: REASON FOR EXAM: Distended gallbladder on CT. Hepatic steatosis TECHNIQUE: Real-time sector scans in the transverse and longitudinal planes were obtained through the right upper quadrant of the abdomen. FINDINGS: The liver is of normal size and contour. The liver is diffusely echogenic. There is hepatopetal flow in the portal vein. There is no intrahepatic biliary ductal dilatation. The common bile duct measures 4 mm. No gallstones or sludge are identified. There is no gallbladder wall thickening nor pericholecystic fluid. There is no sonographic Wood's sign. The pancreas is obscured by bowel gas. The right kidney measures 8.5 cm. No hydronephrosis or nephrolithiasis is identified. There is no evidence of right renal mass or cyst. The visualized portions of the abdominal aorta demonstrate no evidence of aneurysmal dilatation. The visualized inferior vena cava is unremarkable. There is no free fluid identified in the right upper quadrant. IMPRESSION: No gallstone identified. No sonographic evidence of acute cholecystitis. No sonographic wood's sign. Diffusely echogenic liver parenchyma. This may be secondary to steatosis or another diffuse hepatic process. Correlate clinically and with liver function tests.
[2025-10-10] VITALS (10 sets, daily range): BP systolic 126–152; BP diastolic 76–95; PULSE 76–117; RESP 16–21; TEMP 97.9–98.8; O2SAT 90–99
[2025-10-10] MEDS ORDERED: ACETAMINOPHEN 325 MG TAB PO PRN
[2025-10-10] MEDS ORDERED: ONDANSETRON HCL 4 MG/2 ML VIAL IV PRN
[2025-10-10] MEDS ORDERED: MORPHINE SULFATE INJ 2 MG/ml SYRG IV PRN
[2025-10-10] MEDS ORDERED: NITROGLYCERIN 0.4 MG SL TAB SL PRN
[2025-10-10] MEDS: SODIUM CHLORIDE 0.9% 1,000 ML IV SCH (03:00)
[2025-10-10 07:00] LABS: Anion Gap 17 (5-15); BUN/Creatinine Ratio 17.3 (10.0-20.0); Calcium 8.9 mg/dL (8.7-10.4); Carbon Dioxide 25 mmol/L (20-31); Potassium 3.8 mmol/L (3.5-5.1); Total Protein 7.4 g/dL (5.7-8.2)
[2025-10-10 07:01] LABS: Albumin 4.1 g/dL (3.2-4.8)
[2025-10-10 07:03] LABS: Alanine Aminotransferase 64 U/L (7-40); Alkaline Phosphatase 128 U/L (46-116); Bilirubin, Total 1.2 mg/dL (0.2-1.0); Blood Urea Nitrogen 34 mg/dL (9-23); Chloride 89 mmol/L (98-107); Glucose 174 mg/dL (74-106); Sodium 131 mmol/L (136-145)
[2025-10-10 08:35] LABS: Hematocrit 36.6 % (41.0-53.0); Hemoglobin 12.5 g/dL (13.5-17.5); Mean Corpuscular Hemoglobin 32.5 pg (28.0-32.0); Mean Corpuscular Volume 95.5 fL (80.0-100.0); Nucleated Red Blood Cells % 0.0 %
[2025-10-10] MEDS: MORPHINE SULFATE INJ 2 MG/ml SYRG IV PRN (12:12)
--- NOTE | 2025-10-10 16:29 | DVHHP2 ---
Admitting Diagnosis: Abdominal pain History of Present Illness 60 yo male patient with hx of hypotension, neuropathy, DM, and anemia c/o nausea and vomiting. Patient sts that he has been having loss of appetite and pain with swallowing. While in the emergency department the patient was evaluated by the provider, As per provider: Labs, vital signs, and imagining monitored. Patient will be admitted for further evaluation and treatment. I discussed admission with the patient/family and is in agreement to treatment plan. Patient Family History: Diabetes mellitus G8 MOTHER Allergies: Coded Allergies: NO KNOWN ALLERGIES (Unverified , 01/25/20) Home Meds Active Scripts Ibuprofen (Ibuprofen) 800 Mg Tab, 1 TAB PO TID PRN, #30 TAB 0 Refills Prov:MARY BARNES 10/22/22 Current Medications Current Medications Medications (Trade) Dose Ordered Sig/Slim Route PRN Reason Start Time Stop Time Status Last Admin Sodium Chloride 1,000 ml @ 120 mls/hr Q8H20M IV 10/10/25 00:00 10/10/25 17:22 Acetaminophen (Tylenol Tablet) 325 mg Q4HP PRN PO MILD PAIN (1-3 PAIN SCALE) 10/10/25 00:00 Acetaminophen/ Hydrocodone Bitart (Gary 5/325MG Tab) 1 tab Q4HP PRN PO MODERATE PAIN (4-6 PAIN SCALE) 10/10/25 00:00 Temazepam (Restoril) 15 mg QHSP PRN PO FOR INSOMNIA 10/10/25 00:00 Ondansetron HCl (Zofran) 4 mg Q4HP PRN IV NAUSEA / VOMITING 10/10/25 00:00 Docusate Sodium (Colace Capsule) 100 mg BIDPRN PRN PO FOR CONSTIPATION 10/10/25 00:00 Morphine Sulfate 2 mg Q4HPRN PRN IV SEVERE PAIN (7-10 PAIN SCALE) 10/10/25 00:00 10/10/25 12:12 Nitroglycerin (Ntrostat Sublingual) 0.4 mg Q5MINP PRN SL FOR CHEST PAIN 10/10/25 00:00 Morphine Sulfate 2 mg Q30M PRN IV FOR CHEST PAIN 10/10/25 00:00 Diagnostic Test (Pha) (Accu-Chek Comfort Curve T) 1 strip IQ4HR 10/10/25 20:00 10/10/25 19:49 Insulin Human Regular (InsuLIN R) IQ4HR SC 10/10/25 20:00 Dextrose 50 ml UD PRN IV Blood Sugar LESS THAN 60 10/10/25 16:30 Pantoprazole Sodium (Protonix) 40 mg DAILY IV 10/10/25 16:30 10/10/25 17:22 Sucralfate (Carafate Susp) 1 gm QID@0600,1130,1700,2200 GT 10/10/25 17:00 10/10/25 21:22 Insulin Glargine (Lantus) 10 units DAILY@1000 SC 10/11/25 10:00 Metronidazole 100 ml @ 100 mls/hr Q8HR IV 10/10/25 16:45 10/10/25 21:22 Review of Systems Constitutional: denies chills, denies fever, denies malaise Eyes: denies eye pain, denies vision change ENT: denies ear pain, denies headache, denies nasal congestion, denies painful swallowing, denies voice change Cardiovascular: denies chest pain, denies edema, denies orthopnea, denies palpitations, denies paroxysmal nocturnal dyspnea Respiratory: denies cough, denies shortness of breath Gastrointestinal: denies constipation, denies diarrhea, denies nausea, denies vomiting Genitourinary: denies dysuria, denies frequent urination, denies urethral discharge Musculoskeletal: denies back pain, denies joint pain, denies muscle pain Skin: denies bruising, denies itching, denies rash Neurological: denies focal weakness, denies headache, denies sensory changes Psychiatric: denies anxiety, denies depression Endocrine: denies polydipsia, denies polyuria Hematologic/Lymphatic: denies easy bleeding, denies easy bruising, denies enlarged lymph nodes Allergic/Immunologic: denies allergy, denies hives Vital Signs Vital Signs Date Time Temp Pulse Resp B/P (MAP) Pulse Ox O2 Delivery O2 Flow Rate FiO2 10/10/25 20:00 83 16 98 Room Air* 0 21 10/10/25 16:30 97.9 152/76 (101) 97.9 Physical Exam General Appearance: alert, no distress HEENT: EOMI, PERRLA, normal external inspect of ears, no icterus, no nasal drainage Neck: no carotid bruit, no jugular venous distention (JVD), no lymphadenopathy Chest: normal thorax Respiratory: clear to auscultation, normal air movement Cardiovascular: regular rate and rhythm, no diastolic murmur, no jugular venous distention (JVD), no rub, no systolic murmur Abdominal: soft, no hepatomegaly, no mass, no splenomegaly, no tenderness Genitourinary: grossly normal external Musculoskeletal: no joint tenderness, no swelling Extremities: normal pulses, no calf tenderness, no clubbing, no cyanosis, no edema Skin: no bruising, no jaundice, no rash Neurological: alert, No focal deficit SEPSIS Sepsis Screen Date sepsis recognized/suspect: Oct 10, 2025 Time Sepsis recognized/suspect: 011 Recent Procedure: No On Antibiotic Therapy: No Respiratory Rate >20: No Heart Rate >90: Yes Temp<36 C (96.8 F) or >38.3 C: No SBP <90 or MAP <65 mmHG: No New Acute Mental Status Change: No Is the patient on CPAP, BIPAP,: No Physician Orders Chest Portable (10/09/25 14:39) Ct Ab Pel Wo Con-No Oral Or Iv (10/09/25 16:13) Gallbladder (10/09/25 17:29) Admit (10/09/25 23:52) Sodium Chloride 0.9% (10/10/25 00:00) Acetaminophen Tablet (Tylenol Tablet) (10/10/25 00:00) Hydrocodone-Acet 5/325mg Tab (Gary 5/32 (10/10/25 00:00) Temazepam (Restoril) (10/10/25 00:00) Ondansetron Hcl (Zofran) (10/10/25 00:00) Docusate Sodium Capsule (Colace Capsule) (10/10/25 00:00) Morphine Sulfate Injection (10/10/25 00:00) Nitroglycerin Sublingual (Ntrostat Subli (10/10/25 00:00) Morphine Sulfate Injection (10/10/25 00:00) Stat Ekg For Chest Pain (10/09/25 23:52) Notify Md Of Changes From Base (10/09/25 23:52) Legal Paraprofessional For 24 Hours (10/09/25 23:52) Emergency Dysrhythmia Protocol (10/09/25 23:52) Rhythm Strips Once Every Shift (10/09/25 23:52) Oxygen By Nasal Cannula (10/09/25 23:52) Glucose Blood (Accu-Chek Comfort Curve T (10/10/25 20:00) Insulin R (Human) (Insulin R) (10/10/25 20:00) Dextrose 50% Syringe (10/10/25 16:30) Consistent Carb(Ccho)Diabetes (10/10/25 Dinner) Pantoprazole (Protonix) (10/10/25 16:30) * Gi Dvh Regulator Mechanic (10/10/25 16:42) Sucralfate Susp (Carafate Susp) (10/10/25 17:00) Insulin Lantus (Glargine) (Lantus) (10/11/25 10:00) * Surgical Consult (10/10/25 ) Metronidazole 500mg/100ml (Flagyl 500mg/ (10/10/25 16:45) Vital Signs Date Time Temp Pulse Resp B/P (MAP) Pulse Ox O2 Delivery O2 Flow Rate FiO2 10/10/25 20:00 83 16 98 Room Air* 0 21 10/10/25 16:30 97.9 76 19 152/76 (101) 90 97.9 10/10/25 13:00 98.8 93 21 127/86 (100) 99 98.8 10/10/25 12:42 66 18 138/76 10/10/25 12:12 59 20 127/89 10/10/25 08:30 98.5 101 21 134/95 (108) 96 98.5 10/10/25 08:10 101 10/10/25 08:10 101 20 96 Room Air* 0 10/10/25 04:35 98.7 110 18 140/84 (102) 93 98.7 10/10/25 03:50 98.0 117 18 126/91 (103) 99 98.0 10/10/25 03:50 Room Air* 0 21 10/10/25 02:30 98.0 117 18 126/91 (103) 99 98.0 10/10/25 01:12 98.2 102 18 117/56 (76) 97 98.2 10/10/25 01:12 98.2 102 18 117/56 (76) 97 98.2 10/10/25 01:12 102 18 97 Room Air* 0 21 10/09/25 23:42 97.9 113 20 146/66 (92) 98 97.9 10/09/25 21:04 97.9 102 18 139/85 (103) 100 97.9 10/09/25 19:12 97.9 103 20 156/74 (101) 98 97.9 10/09/25 19:01 103 20 156/74 10/09/25 18:35 84 18 119/62 10/09/25 16:06 69 14 115/70 10/09/25 15:36 114 20 126/82 10/09/25 15:24 97.8 114 18 126/82 (97) 96 97.8 10/09/25 11:56 98.6 100 18 151/100 95 98.6 Laboratory Tests Test 10/09/25 12:43 10/10/25 07:34 White Blood Count 13.1 10^3/uL (4.4-10.8) H 8.1 10^3/uL (4.4-10.8) # Medications Medications Dose Ordered Sig/Slim Route Start Time Stop Time Status Last Admin Dose Admin Diagnostic Test (Pha) 1 strip IQ4HR 10/10/25 20:00 10/10/25 19:49 Metronidazole 100 ml @ 100 mls/hr Q8HR IV 10/10/25 16:45 10/10/25 21:22 Pantoprazole Sodium 40 mg DAILY IV 10/10/25 16:30 10/10/25 17:22 Sucralfate 1 gm QID@0600,1130,1700,2200 GT 10/10/25 17:00 10/10/25 21:22 Results Labs Test 10/10/25 19:43 10/10/25 07:34 10/10/25 05:53 10/09/25 12:30 Range/Units POC Glucose 293 H 70-106 mg/dl White Blood Count 8.1 # 4.4-10.8 10^3/uL Red Blood Count 3.83 L 4.5-5.90 10^6/uL Hemoglobin 12.5 #L 13.5-17.5 g/dL Hematocrit 36.6 #L 41.0-53.0 % Mean Corpuscular Volume 95.5 80.0-100.0 fL Mean Corpuscular Hemoglobin 32.5 H 28.0-32.0 pg Mean Corpuscular Hemoglobin Concent 34.0 32.0-36.0 g/dL Red Cell Distribution Width 12.9 11.8-14.3 % Platelet Count 136 L 140-450 10^3/uL Mean Platelet Volume 8.3 6.9-10.8 fL Neutrophils (%) (Auto) 69.2 37.0-80.0 % Lymphocytes (%) (Auto) 21.7 10.0-50.0 % Monocytes (%) (Auto) 8.1 0.0-12.0 % Eosinophils (%) (Auto) 0.4 0.0-7.0 % Basophils (%) (Auto) 0.6 0.0-2.0 % Neutrophils # (Auto) 5.6 1.6-8.6 10 ^3/uL Lymphocytes # (Auto) 1.8 0.4-5.4 10 ^3/uL Monocytes # (Auto) 0.7 0-1.3 10 ^3/uL Eosinophils # (Auto) 0 0-0.8 10 ^3/uL Basophils # (Auto) 0 0-0.2 10 ^3/uL Nucleated Red Blood Cells 0.0 % Hemoglobin A1c 7.6 H <5.7 % A1C Sodium Level 131 #L 136-145 mmol/L Potassium Level 3.8 3.5-5.1 mmol/L Chloride Level 89 L 98-107 mmol/L Carbon Dioxide Level 25 20-31 mmol/L Anion Gap 17 H 5-15 Blood Urea Nitrogen 34 H 9-23 mg/dL Creatinine 1.97 H 0.700-1.30 mg/dL Glomerular Filtration Rate Calc 38 >90 mL/min BUN/Creatinine Ratio 17.3 10.0-20.0 Serum Glucose 174 H 74-106 mg/dL Calcium Level 8.9 8.7-10.4 mg/dL Total Bilirubin 1.2 H 0.2-1.0 mg/dL Aspartate Amino Transferase (AST) 96 H 13-40 U/L Alanine Aminotransferase (ALT) 64 H 7-40 U/L Alkaline Phosphatase 128 H 46-116 U/L Total Protein 7.4 5.7-8.2 g/dL Albumin 4.1 3.2-4.8 g/dL Triglycerides Level 317 H < 150 mg/dL Cholesterol Level 112 < 200 mg/dL LDL Cholesterol 37 < 100 mg/dL HDL Cholesterol 16 L 40-59 mg/dL Lipase 15 12-53 U/L Beta-Hydroxybutyric Acid > 4.500 H < 0.4 mmol/L Urine Color Light-yellow Yellow Urine Clarity Clear Clear Urine pH 5.5 5.0-9.0 Urine Specific [place] 1.016 1.001-1.035 Urine Protein Trace H Negative Urine Ketones 1+ H Negative Urine Blood Negative Negative /uL Urine Nitrite Negative Negative Urine Bilirubin Negative Negative Urine Urobilinogen Normal Negative mg/dL Urine Leukocyte Esterase Negative Negative /uL Urine RBC <1 0 - 3 /hpf Urine Microscopic WBC 1 0-3 /HPF Urine Squamous Epithelial Cells None seen <5 /hpf Urine Bacteria None seen None Seen /hpf Urine Glucose Normal Normal mg/dL Plan 1. ADELA, ATN Monitor, IV fluids, nephrology consult 2. DM uncontrolled Monitor, insulin ss, hgb A1C 3. Benign essential HTN Monitor 4. Hepatic Steatosis Monitor, lipase level, lipid panel Plan discussed with: Patient, Other BLAZE BARRON NP Oct 10, 2025 16:29
--- NOTE | 2025-10-10 16:29 | DVHPN2 ---
Progress Note - Dictate Date Seen: Oct 10, 2025 Medical Necessity Reason Pt with a Central, PICC or Fol: No vital signs Vital Sign Date Time Temp Pulse Resp B/P (MAP) Pulse Ox O2 Delivery O2 Flow Rate FiO2 10/10/25 13:00 98.8 93 21 127/86 (100) 99 98.8 10/10/25 08:10 Room Air* 0 21 Total Intake and Output 10/09/25 10/09/25 10/10/25 15:00 23:00 07:00 Intake Total 1000 ml 0 ml Balance 1000 ml 0 ml medications Current Medications Medications Dose Ordered Sig/Slim Route Start Time Stop Time Status Last Admin Dose Admin Sodium Chloride 1,000 ml @ 120 mls/hr Q8H20M IV 10/10/25 00:00 10/10/25 08:20 Acetaminophen 325 mg Q4HP PRN PO 10/10/25 00:00 Acetaminophen/ Hydrocodone Bitart 1 tab Q4HP PRN PO 10/10/25 00:00 Temazepam 15 mg QHSP PRN PO 10/10/25 00:00 Ondansetron HCl 4 mg Q4HP PRN IV 10/10/25 00:00 Docusate Sodium 100 mg BIDPRN PRN PO 10/10/25 00:00 Morphine Sulfate 2 mg Q4HPRN PRN IV 10/10/25 00:00 10/10/25 12:12 Nitroglycerin 0.4 mg Q5MINP PRN SL 10/10/25 00:00 Morphine Sulfate 2 mg Q30M PRN IV 10/10/25 00:00 objective General Appearance: alert, no distress HEENT: EOMI, PERRLA, normal external inspect of ears, no icterus, no nasal drainage Neck: no carotid bruit, no jugular venous distention (JVD), no lymphadenopathy Chest: normal thorax Respiratory: clear to auscultation, normal air movement Cardiovascular: regular rate and rhythm, no diastolic murmur, no jugular venous distention (JVD), no rub, no systolic murmur Abdominal: soft, no hepatomegaly, no mass, no splenomegaly, no tenderness Genitourinary: grossly normal external Musculoskeletal: no joint tenderness, no swelling Extremities: normal pulses, no calf tenderness, no clubbing, no cyanosis, no edema Skin: no bruising, no jaundice, no rash Neurological: alert, No focal deficit laboratory and microbiology Laboratory Tests 10/10/25 07:34 10/10/25 05:53 Test 10/10/25 05:53 Range/Units Serum Glucose 174 H 74-106 mg/dL Problem List 1. ADELA, ATN Monitor, IV fluids, nephrology consult 2. DM uncontrolled Monitor, insulin ss, hgb A1C 3. Benign essential HTN Monitor 4. Hepatic Steatosis Monitor, lipase level, lipid panel Assessment/Plan Subjective: Patient is awake and alert. Objective: Patient was admitted for intractable nausea and vomiting 2 days. Patient states he is having abdominal pain, especially with eating or drinking. CT imaging of the abdomen showed a thickened gallbladder; however, ultrasound of the gallbladder did not show cholecystitis. Plan: GI evaluation for possible gastric ulcer. Continue PPI and Carafate. Start IV Flagyl. Surgical consult to definitively rule out cholecystitis. Continue IV fluids. Plan discussed with: Patient, Other BLAZE BARRON NP Oct 10, 2025 16:29
[2025-10-10] MEDS ORDERED: DEXTROSE (50%) 50ML SYRG IV PRN (16:30)
[2025-10-10 16:52] LABS: Cholesterol 112 mg/dL (< 200); HDL Cholesterol 16 mg/dL (40-59); Triglycerides 317 mg/dL (< 150)
[2025-10-10] MEDS: PANTOPRAZOLE 40 MG/10 ML VIAL INJ IV SCH (17:22)
[2025-10-10] MEDS: SUCRALFATE 1 GM/10 ML ORAL SUSP GT SCH (17:24)
[2025-10-10] MEDS: ACCU-CHEK COMFORT CURVE STRIP VI SCH (19:49)
[2025-10-10] MEDS: InsuLIN REG 1unit/0.01ml Soln (100units/ml) SC SCH (19:49)
[2025-10-11] VITALS (8 sets, daily range): BP systolic 109–175; BP diastolic 63–105; PULSE 76–116; RESP 17–20; TEMP 97.7–98.1; O2SAT 95–99
--- NOTE | 2025-10-11 08:14 | DVHPN2 ---
Progress Note - Dictate Date Seen: Oct 11, 2025 Medical Necessity Reason Pt with a Central, PICC or Fol: No vital signs Vital Sign Date Time Temp Pulse Resp B/P (MAP) Pulse Ox O2 Delivery O2 Flow Rate FiO2 10/11/25 05:00 97.7 100 17 175/105 (128) 96 97.7 10/10/25 20:00 Room Air* 0 21 Total Intake and Output 10/10/25 10/10/25 10/11/25 14:59 22:59 06:59 Intake Total 650 ml 725 ml Output Total 750 ml Balance 650 ml -25 ml medications Current Medications Medications Dose Ordered Sig/Slim Route Start Time Stop Time Status Last Admin Dose Admin Sodium Chloride 1,000 ml @ 120 mls/hr Q8H20M IV 10/10/25 00:00 10/10/25 17:22 120 MLS/HR Acetaminophen 325 mg Q4HP PRN PO 10/10/25 00:00 Acetaminophen/ Hydrocodone Bitart 1 tab Q4HP PRN PO 10/10/25 00:00 Temazepam 15 mg QHSP PRN PO 10/10/25 00:00 Ondansetron HCl 4 mg Q4HP PRN IV 10/10/25 00:00 Docusate Sodium 100 mg BIDPRN PRN PO 10/10/25 00:00 Morphine Sulfate 2 mg Q4HPRN PRN IV 10/10/25 00:00 10/10/25 12:12 2 MG Nitroglycerin 0.4 mg Q5MINP PRN SL 10/10/25 00:00 Morphine Sulfate 2 mg Q30M PRN IV 10/10/25 00:00 Diagnostic Test (Pha) 1 strip IQ4HR 10/10/25 20:00 10/11/25 07:58 1 STRIP Insulin Human Regular IQ4HR SC 10/10/25 20:00 10/11/25 04:25 6 UNITS Dextrose 50 ml UD PRN IV 10/10/25 16:30 Pantoprazole Sodium 40 mg DAILY IV 10/10/25 16:30 10/10/25 17:22 40 MG Sucralfate 1 gm QID@0600,1130,1700,2200 GT 10/10/25 17:00 10/11/25 05:11 1 GM Insulin Glargine 10 units DAILY@1000 SC 10/11/25 10:00 Metronidazole 100 ml @ 100 mls/hr Q8HR IV 10/10/25 16:45 10/11/25 05:11 100 MLS/HR objective General Appearance: alert, no distress HEENT: EOMI, PERRLA, normal external inspect of ears, no icterus, no nasal drainage Neck: no carotid bruit, no jugular venous distention (JVD), no lymphadenopathy Chest: normal thorax Respiratory: clear to auscultation, normal air movement Cardiovascular: regular rate and rhythm, no diastolic murmur, no jugular venous distention (JVD), no rub, no systolic murmur Abdominal: soft, no hepatomegaly, no mass, no splenomegaly, no tenderness Genitourinary: grossly normal external Musculoskeletal: no joint tenderness, no swelling Extremities: normal pulses, no calf tenderness, no clubbing, no cyanosis, no edema Skin: no bruising, no jaundice, no rash Neurological: alert, No focal deficit laboratory and microbiology Laboratory Tests 10/10/25 07:34 10/10/25 05:53 Test 10/10/25 05:53 Range/Units Serum Glucose 174 H 74-106 mg/dL Problem List 1. ADELA, ATN Monitor, IV fluids, nephrology consult 2. DM uncontrolled Monitor, insulin ss, hgb A1C 3. Benign essential HTN Monitor 4. Hepatic Steatosis Monitor, lipase level, lipid panel Assessment/Plan Subjective Patient is awake and alert. Objective He was admitted for abdominal pain. He was seen by GI. Patient states he was recently diagnosed with gastritis and he was also given Protonix and Carafate. Patient also has abdominal pain with gallstones. Plan Surgical consult. CT imaging shows possible cholecystitis. Ultrasound of the gallbladder did not show any cholecystitis. Patient is still complaining of abdominal pain. However he states his pain is worse when he eats or drinks. Could be possible ulcer. Continue PPI, Carafate. GI recommendations appreciated. Plan discussed with: Patient, Other BALZE BARRON NP Oct 11, 2025 08:14
[2025-10-11] MEDS: HYDROcodone-ACET 5/325MG TAB PO PRN (08:42)
[2025-10-11] MEDS: INSULIN LANTUS (GLARGINE) 1 /0.01ml (100units/ml) SC SCH (08:54)
[2025-10-11 11:29] LABS: Hematocrit 32.4 % (41.0-53.0); Hemoglobin 11.0 g/dL (13.5-17.5); Mean Corpuscular Hemoglobin 32.3 pg (28.0-32.0); Mean Corpuscular Volume 95.0 fL (80.0-100.0); Nucleated Red Blood Cells % 0.1 %
[2025-10-11 11:49] LABS: Albumin 3.4 g/dL (3.2-4.8); Alkaline Phosphatase 98 U/L (46-116); Anion Gap 11 (5-15); BUN/Creatinine Ratio 10.1 (10.0-20.0); Blood Urea Nitrogen 14 mg/dL (9-23); Carbon Dioxide 27 mmol/L (20-31); Chloride 98 mmol/L (98-107); Magnesium 1.9 mg/dL (1.6-2.6); Potassium 3.7 mmol/L (3.5-5.1); Total Protein 6.2 g/dL (5.7-8.2)
[2025-10-11 11:55] LABS: Alanine Aminotransferase 82 U/L (7-40); Bilirubin, Total 1.6 mg/dL (0.2-1.0); Calcium 8.2 mg/dL (8.7-10.4); Glucose 218 mg/dL (74-106); Sodium 136 mmol/L (136-145)
--- NOTE | 2025-10-11 15:55 | DVHCONRES ---
Date Seen: Oct 11, 2025 Resident Creating Document: SHAKA AMADO RESIDENT History of Present Illness 60 yo male patient with hx of hypotension, neuropathy, DM, and anemia c/o nausea and vomiting. Patient sts that he has been having loss of appetite and pain with swallowing. On my assessment, patient seen eating and drinking food. Denies nausea and vomiting. Patient had ketosis and anion gap metabolic acidosis on arrival. Patient had endoscopy and colonoscopy recently. PCP Dr. Parada Patient seen and examined. Denies nausea vomiting acute distress. Family History: Diabetes mellitus G8 MOTHER Allergies: Coded Allergies: NO KNOWN ALLERGIES (Unverified , 01/25/20) Home Meds Active Scripts Ibuprofen (Ibuprofen) 800 Mg Tab, 1 TAB PO TID PRN, #30 TAB 0 Refills Prov:MARY BARNES 10/22/22 Current Medications Current Medications Medications (Trade) Dose Ordered Sig/Slim Route PRN Reason Start Time Stop Time Status Last Admin Diagnostic Test (Pha) (Accu-Chek Comfort Curve T) 1 strip IQ4HR 10/10/25 20:00 10/11/25 11:35 Insulin Human Regular (InsuLIN R) IQ4HR SC 10/10/25 20:00 10/11/25 12:18 Dextrose 50 ml UD PRN IV Blood Sugar LESS THAN 60 10/10/25 16:30 Pantoprazole Sodium (Protonix) 40 mg DAILY IV 10/10/25 16:30 10/11/25 08:42 Sucralfate (Carafate Susp) 1 gm QID@0600,1130,1700,2200 GT 10/10/25 17:00 10/11/25 11:20 Insulin Glargine (Lantus) 10 units DAILY@1000 SC 10/11/25 10:00 10/11/25 08:54 Metronidazole 100 ml @ 100 mls/hr Q8HR IV 10/10/25 16:45 10/11/25 15:05 Vital Signs Vital Signs Date Time Temp Pulse Resp B/P (MAP) Pulse Ox O2 Delivery O2 Flow Rate FiO2 10/11/25 15:05 89 20 148/89 10/11/25 13:00 97.9 96 97.9 10/11/25 08:00 Room Air* 0 21 Physical Exam Patient lying in bed, in no acute distress General: Well-built, afebrile, palor, mucosae are moist Cardiovascular: Regular S1 and S2. No murmurs, gallops or rubs. No JVD elevation. No pedal edema Respiratory: Normal B/L air entry on room air. Clear lung sounds on auscultation Abdomen: Soft, nontender, nondistended, normoactive bowel sounds, no rebound tenderness, no organomegaly, no masses Genitourinary: Deferred MSK/skin: Mobilizes 4 limbs. Skin is dry and warm Neurological: No motor, no sensitive deficits, normal speech. Pupils are isocoric and reactive. Psych/Mental Status: A/Ox3 Labs/Diagnostic Data Labs Test 10/11/25 11:14 10/11/25 10:53 10/10/25 07:34 10/10/25 05:53 Range/Units POC Glucose 248 H 70-106 mg/dl White Blood Count 4.4 # 4.4-10.8 10^3/uL Red Blood Count 3.41 L 4.5-5.90 10^6/uL Hemoglobin 11.0 L 13.5-17.5 g/dL Hematocrit 32.4 #L 41.0-53.0 % Mean Corpuscular Volume 95.0 80.0-100.0 fL Mean Corpuscular Hemoglobin 32.3 H 28.0-32.0 pg Mean Corpuscular Hemoglobin Concent 34.0 32.0-36.0 g/dL Red Cell Distribution Width 12.4 11.8-14.3 % Platelet Count 107 L 140-450 10^3/uL Mean Platelet Volume 8.4 6.9-10.8 fL Neutrophils (%) (Auto) 57.8 37.0-80.0 % Lymphocytes (%) (Auto) 30.3 10.0-50.0 % Monocytes (%) (Auto) 11.0 0.0-12.0 % Eosinophils (%) (Auto) 0.7 0.0-7.0 % Basophils (%) (Auto) 0.2 0.0-2.0 % Neutrophils # (Auto) 2.6 1.6-8.6 10 ^3/uL Lymphocytes # (Auto) 1.3 0.4-5.4 10 ^3/uL Monocytes # (Auto) 0.5 0-1.3 10 ^3/uL Eosinophils # (Auto) 0 0-0.8 10 ^3/uL Basophils # (Auto) 0 0-0.2 10 ^3/uL Nucleated Red Blood Cells 0.1 % Sodium Level 136 # 136-145 mmol/L Potassium Level 3.7 3.5-5.1 mmol/L Chloride Level 98 98-107 mmol/L Carbon Dioxide Level 27 20-31 mmol/L Anion Gap 11 5-15 Blood Urea Nitrogen 14 # 9-23 mg/dL Creatinine 1.39 H 0.700-1.30 mg/dL Glomerular Filtration Rate Calc 57 >90 mL/min BUN/Creatinine Ratio 10.1 10.0-20.0 Serum Glucose 218 H 74-106 mg/dL Calcium Level 8.2 L 8.7-10.4 mg/dL Magnesium Level 1.9 1.6-2.6 mg/dL Total Bilirubin 1.6 H 0.2-1.0 mg/dL Aspartate Amino Transferase (AST) 176 H 13-40 U/L Alanine Aminotransferase (ALT) 82 H 7-40 U/L Alkaline Phosphatase 98 46-116 U/L C-Reactive Protein High Sensitivity 0.51 <1.0 mg/dL Total Protein 6.2 5.7-8.2 g/dL Albumin 3.4 3.2-4.8 g/dL Thyroid Stimulating Hormone (TSH) 2.37 0.55-4.78 uIU/mL Plasma/Serum Blood Alcohol < 3.0 <10 mg/dL Hemoglobin A1c 7.6 H <5.7 % A1C Triglycerides Level 317 H < 150 mg/dL Cholesterol Level 112 < 200 mg/dL LDL Cholesterol 37 < 100 mg/dL HDL Cholesterol 16 L 40-59 mg/dL Lipase 15 12-53 U/L Beta-Hydroxybutyric Acid > 4.500 H < 0.4 mmol/L Test 10/09/25 12:30 Range/Units Urine Color Light-yellow Yellow Urine Clarity Clear Clear Urine pH 5.5 5.0-9.0 Urine Specific [place] 1.016 1.001-1.035 Urine Protein Trace H Negative Urine Ketones 1+ H Negative Urine Blood Negative Negative /uL Urine Nitrite Negative Negative Urine Bilirubin Negative Negative Urine Urobilinogen Normal Negative mg/dL Urine Leukocyte Esterase Negative Negative /uL Urine RBC <1 0 - 3 /hpf Urine Microscopic WBC 1 0-3 /HPF Urine Squamous Epithelial Cells None seen <5 /hpf Urine Bacteria None seen None Seen /hpf Urine Glucose Normal Normal mg/dL Assessment Nausea and vomiting in the setting of uncontrolled diabetes/DKA Acute kidney injury likely VMN Uncontrolled hypertension Diabetes mellitus type 2-A1c 7.6 Likely chronic pancreatitis Transaminitis likely steatosis Dyslipidemia Liver ultrasound shows No gallstone identified. No sonographic evidence of acute cholecystitis. No sonographic reagan's sign. Diffusely echogenic liver p arenchyma. This may be secondary to steatosis or another diffuse hepatic process. Correlate clinically and with liver function tests. CT abdomen shows Mildly distended gallbladder. Ultrasound recommended for further assessmen, Hepatic steatosis. Sequelae of chronic pancreatitis. Plan/Recommendation Nausea and vomiting has resolved. Patient is tolerating carbohydrate diet well. No acute intervention needed. Patient recently had EGD and colonoscopy. Follow up as outpatient within next 2-4 weeks with GI. Continue Protonix 40 mg daily Monitor CMP daily Continue IV hydration Recommend diabetic education and medication compliance Rest of management per primary team Plan discussed with patient in which all questions have been answered Case discussed with Dr. Hayward Plan discussed with: Patient SHAKA AMADO RESIDENT Oct 11, 2025 15:54
[2025-10-11 18:59] LABS: COVID19 ANTIGEN SOFIA FIA NEGATIVE (NEGATIVE)
[2025-10-12] VITALS (8 sets, daily range): BP systolic 107–136; BP diastolic 60–80; PULSE 70–97; RESP 18–19; TEMP 97.7–98.9; O2SAT 96–100
[2025-10-12 06:31] LABS: Alkaline Phosphatase 91 U/L (46-116); Anion Gap 11 (5-15); BUN/Creatinine Ratio 5.3 (10.0-20.0); Carbon Dioxide 26 mmol/L (20-31); Chloride 101 mmol/L (98-107); Sodium 138 mmol/L (136-145); Total Protein 5.8 g/dL (5.7-8.2)
[2025-10-12 06:37] LABS: Alanine Aminotransferase 87 U/L (7-40); Albumin 3.1 g/dL (3.2-4.8); Bilirubin, Total 1.3 mg/dL (0.2-1.0); Blood Urea Nitrogen 6 mg/dL (9-23); Calcium 8.2 mg/dL (8.7-10.4); Glucose 178 mg/dL (74-106); Potassium 3.5 mmol/L (3.5-5.1)
[2025-10-12] MEDS: DOCUSATE SOD 100 MG CAP PO PRN (10:37)
--- NOTE | 2025-10-12 11:51 | DVHPN2 ---
Progress Note - Dictate Date Seen: Oct 12, 2025 Medical Necessity Reason Pt with a Central, PICC or Fol: No vital signs Vital Sign Date Time Temp Pulse Resp B/P (MAP) Pulse Ox O2 Delivery O2 Flow Rate FiO2 10/12/25 09:00 98.6 83 18 134/80 (98) 100 98.6 10/12/25 08:00 Room Air* 0 21 Total Intake and Output 10/11/25 10/11/25 10/12/25 15:00 23:00 07:00 Intake Total 2085 ml 500 ml Output Total 200 ml Balance 2085 ml 300 ml medications Current Medications Medications Dose Ordered Sig/Slim Route Start Time Stop Time Status Last Admin Dose Admin Sodium Chloride 1,000 ml @ 120 mls/hr Q8H20M IV 10/10/25 00:00 10/12/25 10:39 120 MLS/HR Acetaminophen 325 mg Q4HP PRN PO 10/10/25 00:00 Acetaminophen/ Hydrocodone Bitart 1 tab Q4HP PRN PO 10/10/25 00:00 10/12/25 10:37 1 TAB Temazepam 15 mg QHSP PRN PO 10/10/25 00:00 Ondansetron HCl 4 mg Q4HP PRN IV 10/10/25 00:00 Docusate Sodium 100 mg BIDPRN PRN PO 10/10/25 00:00 10/12/25 10:37 100 MG Morphine Sulfate 2 mg Q4HPRN PRN IV 10/10/25 00:00 10/12/25 04:56 2 MG Nitroglycerin 0.4 mg Q5MINP PRN SL 10/10/25 00:00 Morphine Sulfate 2 mg Q30M PRN IV 10/10/25 00:00 Diagnostic Test (Pha) 1 strip IQ4HR 10/10/25 20:00 10/12/25 08:16 1 STRIP Insulin Human Regular IQ4HR SC 10/10/25 20:00 10/12/25 08:28 6 UNITS Dextrose 50 ml UD PRN IV 10/10/25 16:30 Pantoprazole Sodium 40 mg DAILY IV 10/10/25 16:30 10/12/25 10:37 40 MG Sucralfate 1 gm QID@0600,1130,1700,2200 GT 10/10/25 17:00 10/12/25 10:38 1 GM Insulin Glargine 10 units DAILY@1000 SC 10/11/25 10:00 10/12/25 10:00 10 UNITS Metronidazole 100 ml @ 100 mls/hr Q8HR IV 10/10/25 16:45 10/12/25 05:03 100 MLS/HR objective General Appearance: alert, no distress HEENT: EOMI, PERRLA, normal external inspect of ears, no icterus, no nasal drainage Neck: no carotid bruit, no jugular venous distention (JVD), no lymphadenopathy Chest: normal thorax Respiratory: clear to auscultation, normal air movement Cardiovascular: regular rate and rhythm, no diastolic murmur, no jugular venous distention (JVD), no rub, no systolic murmur Abdominal: soft, no hepatomegaly, no mass, no splenomegaly, no tenderness Genitourinary: grossly normal external Musculoskeletal: no joint tenderness, no swelling Extremities: normal pulses, no calf tenderness, no clubbing, no cyanosis, no edema Skin: no bruising, no jaundice, no rash Neurological: alert, No focal deficit laboratory and microbiology Laboratory Tests 10/12/25 04:42 10/11/25 10:53 Test 10/12/25 04:42 Range/Units Serum Glucose 178 H 74-106 mg/dL Problem List 1. ADELA, ATN Monitor, IV fluids, nephrology consult 2. DM uncontrolled Monitor, insulin ss, hgb A1C 3. Benign essential HTN Monitor 4. Hepatic Steatosis Monitor, lipase level, lipid panel Assessment/Plan Subjective Patient is awake and alert. Objective Patient was admitted for abdominal pain. Patient states he has more pain when he eats or drinks. Patient was seen by GI. He also has gallstones. CT imaging showed possible cholecystitis. Ultrasound did not show any cholecystitis. Patient has elevating liver enzymes. I did leave a voicemail for general surgery Dr. Amato. Plan Surgical consult. Dietary Evaluation Review Comments: [facility]-45 Cardiac Diet Reinforce PO intake to meet 100% of his needs Monitor lab trend, GI and skin integrity Expected Outcomes/Goals: maintain body weight Plan discussed with: Patient, Other BLAZE BARRON NP Oct 12, 2025 11:51
--- NOTE | 2025-10-12 16:21 | DVHPN2 ---
Progress Note Date Seen: Oct 12, 2025 Resident Creating Document: SHAKA AMADO RESIDENT Medical Necessity Reason Pt with a Central, PICC or Fol: No Subjective Review of Systems 60 yo male patient with hx of hypotension, neuropathy, DM, and anemia c/o nausea and vomiting. Patient sts that he has been having loss of appetite and pain with swallowing. On my assessment, patient seen eating and drinking food. Denies nausea and vomiting. Patient had ketosis and anion gap metabolic acidosis on arrival. Patient had endoscopy and colonoscopy recently. PCP Dr. Parada Patient seen and examined. Denies nausea vomiting acute distress. 10/12-patient seen and examined, reports dysphagia and abdominal pain postprandial. Abdomen is soft and nontender. Objective vital signs Vital Sign Date Time Temp Pulse Resp B/P (MAP) Pulse Ox O2 Delivery O2 Flow Rate FiO2 10/12/25 13:31 75 18 122/73 10/12/25 13:00 98.9 99 98.9 10/12/25 08:00 Room Air* 0 21 Total Intake and Output 10/11/25 10/11/25 10/12/25 15:00 23:00 07:00 Intake Total 2085 ml 500 ml Output Total 200 ml Balance 2085 ml 300 ml medications Current Medications Medications Dose Ordered Sig/Slim Route Start Time Stop Time Status Last Admin Dose Admin Sodium Chloride 1,000 ml @ 120 mls/hr Q8H20M IV 10/10/25 00:00 10/12/25 10:39 120 MLS/HR Acetaminophen 325 mg Q4HP PRN PO 10/10/25 00:00 Acetaminophen/ Hydrocodone Bitart 1 tab Q4HP PRN PO 10/10/25 00:00 10/12/25 10:37 1 TAB Temazepam 15 mg QHSP PRN PO 10/10/25 00:00 Ondansetron HCl 4 mg Q4HP PRN IV 10/10/25 00:00 Docusate Sodium 100 mg BIDPRN PRN PO 10/10/25 00:00 10/12/25 10:37 100 MG Morphine Sulfate 2 mg Q4HPRN PRN IV 10/10/25 00:00 10/12/25 13:31 2 MG Nitroglycerin 0.4 mg Q5MINP PRN SL 10/10/25 00:00 Morphine Sulfate 2 mg Q30M PRN IV 10/10/25 00:00 Diagnostic Test (Pha) 1 strip IQ4HR 10/10/25 20:00 10/12/25 12:23 1 STRIP Insulin Human Regular IQ4HR SC 10/10/25 20:00 10/12/25 08:28 6 UNITS Dextrose 50 ml UD PRN IV 10/10/25 16:30 Pantoprazole Sodium 40 mg DAILY IV 10/10/25 16:30 10/12/25 10:37 40 MG Sucralfate 1 gm QID@0600,1130,1700,2200 GT 10/10/25 17:00 10/12/25 10:38 1 GM Insulin Glargine 10 units DAILY@1000 SC 10/11/25 10:00 10/12/25 10:00 10 UNITS Metronidazole 100 ml @ 100 mls/hr Q8HR IV 10/10/25 16:45 10/12/25 13:30 100 MLS/HR Examination Patient lying in bed, in no acute distress General: Well-built, afebrile, palor, mucosae are moist Cardiovascular: Regular S1 and S2. No murmurs, gallops or rubs. No JVD elevation. No pedal edema Respiratory: Normal B/L air entry on room air. Clear lung sounds on auscultation Abdomen: Soft, nontender, nondistended, normoactive bowel sounds, no rebound tenderness, no organomegaly, no masses Genitourinary: Deferred MSK/skin: Mobilizes 4 limbs. Skin is dry and warm Neurological: No motor, no sensitive deficits, normal speech. Pupils are isocoric and reactive. Psych/Mental Status: A/Ox3 laboratory and microbiology Laboratory Tests 10/12/25 04:42 10/11/25 10:53 Test 10/12/25 04:42 Range/Units Serum Glucose 178 H 74-106 mg/dL Labs and/or images reviewed: Labs reviewed by me, Image(s) reviewed by me Problem List/Assessment/Plan Problem List/Assessment/Plan Nausea and vomiting in the setting of uncontrolled diabetes/DKA Acute kidney injury likely VMN Uncontrolled hypertension Diabetes mellitus type 2-A1c 7.6 Likely chronic pancreatitis Transaminitis likely steatosis Dyslipidemia Liver ultrasound shows No gallstone identified. No sonographic evidence of acute cholecystitis. No sonographic reagan's sign. Diffusely echogenic liver parenchyma. This may be secondary to steatosis or another diffuse hepatic process. Correlate clinically and with liver function tests. CT abdomen shows Mildly distended gallbladder. Ultrasound recommended for further assessmen, Hepatic steatosis. Sequelae of chronic pancreatitis. Plan/Recommendation Given the dysphagia, postprandial pain, patient will be scheduled for EGD on 10/13. NPO after midnight. Obtain consents. Continue Protonix 40 mg daily Monitor CMP daily Continue IV hydration Recommend diabetic education and medication compliance Rest of management per primary team Plan discussed with patient in which all questions have been answered Case discussed with Dr. Hayward Plan discussed with: Patient Dietary Evaluation [facility] Comments[facility] Reinforce PO intake to meet 100% of his needs Monitor lab trend, GI and skin integrity Expected Outcomes/Goals: maintain body weight SHAKA AMADO RESIDENT Oct 12, 2025 16:21
--- NOTE | 2025-10-12 18:58 | DVHCONRES ---
Date Seen: Oct 12, 2025 Resident Creating Document: VIELKA HELTON Jr., MD Referring Physician humble Reason for Consultation Abdominal pain History of Present Illness 60-year-old male brought in by ambulance with a prior medical history of liver, hypotension, neuropathy, diabetes, anemic and then chief complaint of N/V. Patient reports having nausea and vomiting associated with loss of appetite and pain when swallowing has been gradually worsening. Denies any other symptoms at this time. Denies chills, fever, /D, SOB, CP. No other associated symptoms, modifiers, recent injuries or sick contacts present at this time. Patient is currently eating dinner he states he has not had a bowel movement in five days. He also says he has severe pain in his chest when swallowing. However he is currently actively eating as he is being evaluated Past Medical History Liver disease, hypotension, neuropathy, diabetes, anemic Past Surgical History None Family History: Diabetes mellitus G8 MOTHER Social History Former smoker Allergies: Coded Allergies: NO KNOWN ALLERGIES (Unverified , 01/25/20) Home Meds Active Scripts Ibuprofen (Ibuprofen) 800 Mg Tab, 1 TAB PO TID PRN, #30 TAB 0 Refills Prov:MARY BARNES 10/22/22 Review of Systems All systems reviewed otherwise negative other what is in HPI. Vital Signs Vital Signs Date Time Temp Pulse Resp B/P (MAP) Pulse Ox O2 Delivery O2 Flow Rate FiO2 10/12/25 16:42 98.0 70 18 125/78 (94) 100 98.0 10/12/25 08:00 Room Air* 0 21 Physical Exam Patient currently looks well head eyes ears nose and throat exam eyes are nonicteric conjunctiva is pink neck was supple no JVD no lymphadenopathy no carotid bruits lungs are clear to auscultation heart was regular rate and rhythm abdomen is soft nontender no abdominal bruits or pulsatile masses. Lower ext remities palpable femoral and pedal pulses bilaterally. Labs/Diagnostic Data Labs Test 10/12/25 15:54 10/12/25 04:42 10/11/25 17:00 10/11/25 10:53 Range/Units POC Glucose 184 H 70-106 mg/dl Sodium Level 138 136-145 mmol/L Potassium Level 3.5 3.5-5.1 mmol/L Chloride Level 101 98-107 mmol/L Carbon Dioxide Level 26 20-31 mmol/L Anion Gap 11 5-15 Blood Urea Nitrogen 6 L 9-23 mg/dL Creatinine 1.13 0.700-1.30 mg/dL Glomerular Filtration Rate Calc 73 >90 mL/min BUN/Creatinine Ratio 5.3 L 10.0-20.0 Serum Glucose 178 H 74-106 mg/dL Calcium Level 8.2 L 8.7-10.4 mg/dL Total Bilirubin 1.3 H 0.2-1.0 mg/dL Aspartate Amino Transferase (AST) 207 H 13-40 U/L Alanine Aminotransferase (ALT) 87 H 7-40 U/L Alkaline Phosphatase 91 46-116 U/L Total Protein 5.8 5.7-8.2 g/dL Albumin 3.1 L 3.2-4.8 g/dL Influenza Type A Antigen Negative Negative Influenza Type B Antigen Negative Negative SARS-CoV-2 Antigen (Rapid) Negative NEGATIVE White Blood Count 4.4 # 4.4-10.8 10^3/uL Red Blood Count 3.41 L 4.5-5.90 10^6/uL Hemoglobin 11.0 L 13.5-17.5 g/dL Hematocrit 32.4 #L 41.0-53.0 % Mean Corpuscular Volume 95.0 80.0-100.0 fL Mean Corpuscular Hemoglobin 32.3 H 28.0-32.0 pg Mean Corpuscular Hemoglobin Concent 34.0 32.0-36.0 g/dL Red Cell Distribution Width 12.4 11.8-14.3 % Platelet Count 107 L 140-450 10^3/uL Mean Platelet Volume 8.4 6.9-10.8 fL Neutrophils (%) (Auto) 57.8 37.0-80.0 % Lymphocytes (%) (Auto) 30.3 10.0-50.0 % Monocytes (%) (Auto) 11.0 0.0-12.0 % Eosinophils (%) (Auto) 0.7 0.0-7.0 % Basophils (%) (Auto) 0.2 0.0-2.0 % Neutrophils # (Auto) 2.6 1.6-8.6 10 ^3/uL Lymphocytes # (Auto) 1.3 0.4-5.4 10 ^3/uL Monocytes # (Auto) 0.5 0-1.3 10 ^3/uL Eosinophils # (Auto) 0 0-0.8 10 ^3/uL Basophils # (Auto) 0 0-0.2 10 ^3/uL Nucleated Red Blood Cells 0.1 % Magnesium Level 1.9 1.6-2.6 mg/dL C-Reactive Protein High Sensitivity 0.51 <1.0 mg/dL Thyroid Stimulating Hormone (TSH) 2.37 0.55-4.78 uIU/mL Plasma/Serum Blood Alcohol < 3.0 <10 mg/dL Test 10/10/25 07:34 10/10/25 05:53 10/09/25 12:30 Range/Units Hemoglobin A1c 7.6 H <5.7 % A1C Triglycerides Level 317 H < 150 mg/dL Cholesterol Level 112 < 200 mg/dL LDL Cholesterol 37 < 100 mg/dL HDL Cholesterol 16 L 40-59 mg/dL Lipase 15 12-53 U/L Beta-Hydroxybutyric Acid > 4.500 H < 0.4 mmol/L Urine Color Light-yellow Yellow Urine Clarity Clear Clear Urine pH 5.5 5.0-9.0 Urine Specific [place] 1.016 1.001-1.035 Urine Protein Trace H Negative Urine Ketones 1+ H Negative Urine Blood Negative Negative /uL Urine Nitrite Negative Negative Urine Bilirubin Negative Negative Urine Urobilinogen Normal Negative mg/dL Urine Leukocyte Esterase Negative Negative /uL Urine RBC <1 0 - 3 /hpf Urine Microscopic WBC 1 0-3 /HPF Urine Squamous Epithelial Cells None seen <5 /hpf Urine Bacteria None seen None Seen /hpf Urine Glucose Normal Normal mg/dL ULTRASOUND ABDOMEN, LIMITED RIGHT UPPER QUADRANT: REASON FOR EXAM: Distended gallbladder on CT. Hepatic steatosis TECHNIQUE: Real-time sector scans in the transverse and longitudinal planes were obtained through the right upper quadrant of the abdomen. FINDINGS: The liver is of normal size and contour. The liver is diffusely echogenic. There is hepatopetal flow in the portal vein. There is no intrahepatic biliary ductal dilatation. The common bile duct measures 4 mm. No gallstones or sludge are identified. There is no gallbladder wall thickening nor pericholecystic fluid. There is no sonographic Reagan's sign. The pancreas is obscured by bowel gas. The right kidney measures 8.5 cm. No hydronephrosis or nephrolithiasis is identified. There is no evidence of right renal mass or cyst. The visualized portions of the abdominal aorta demonstrate no evidence of aneurysmal dilatation. The visualized inferior vena cava is unremarkable. There is no free fluid identified in the right upper quadrant. IMPRESSION: No gallstone identified. No sonographic evidence of acute cholecystitis. No sonographic reagan's sign. Diffusely echogenic liver parenchyma. This may be secondary to steatosis or another diffuse hepatic process. Correlate clinically and with liver function tests. CT CT AB PEL WO CON-NO ORAL OR IV History: abdominal pain Comparison Study: PELVIS WO CONTRAST on DOS: 10/22/22, PL2CT on DOS: 10/22/22 Technique: Multidetector spiral CT of the abdomen was performed from lung bases to pubic symphysis. Imaging was performed without IV contrast. Axial, coronal and sagittal multiplanar reformats were obtained from the axial data set by the technologist. Radiation Dose : 1. Abdomen/Pelvis: CTDIvol 5.07 mGy, DLP 264.17 mGy*cm. Findings: Lower chest is unremarkable. Diffuse hepatic steatosis. The gallbladder is mildly distended. No biliary ductal dilatation. Pancreas is atrophic with numerous coarse calcifications, related to chronic pancreatitis. The spleen, adrenal glands, and kidneys are unremarkable. Scattered atherosclerotic plaque throughout the abdominal aorta which is otherwise normal in size. No acute bowel abnormality. Normal appendix. No pneumoperitoneum, ascites, or abscess. The urinary bladder is unremarkable. Unremarkable prostate. No lymphadenopathy. No acute or suspicious osseous lesions IMPRESSION: Mildly distended gallbladder. Ultrasound recommended for further assessment Hepatic steatosis. Sequelae of chronic pancreatitis. Radiation optimization: All CT scans at this facility use at least one of these dose optimization techniques: automated exposure control mA and/or kV adjustment per patient size (includes targeted exams where dose is matched to clinical indication) or iterative reconstruction. Assessment Elevated liver enzymes with pain with swallowing. No evidence of cholecystitis Scheduled for EGD tomorrow. Continue with PPI Continue to follow Plan/Recommendation Elevated liver enzymes with pain with swallowing. No evidence of cholecystitis Scheduled for EGD tomorrow. Continue with PPI Continue to follow Plan discussed with: Patient VIELKA HELTON Jr., MD Oct 12, 2025 18:58
[2025-10-12] MEDS: TEMAZEPAM 15 MG CAP PO PRN (22:37)
[2025-10-13] VITALS (10 sets, daily range): BP systolic 119–156; BP diastolic 68–93; PULSE 72–96; RESP 12–19; TEMP 97.1–98.8; O2SAT 97–100
--- NOTE | 2025-10-13 11:11 | DVHPN2 ---
Progress Note - Dictate Date Seen: Oct 13, 2025 Medical Necessity Reason Pt with a Central, PICC or Fol: No vital signs Vital Sign Date Time Temp Pulse Resp B/P (MAP) Pulse Ox O2 Delivery O2 Flow Rate FiO2 10/13/25 10:03 78 16 143/82 10/13/25 09:00 98.6 99 98.6 10/13/25 07:30 Room Air* 0 21 Total Intake and Output 10/12/25 10/12/25 10/13/25 15:00 23:00 07:00 Intake Total 600 ml 440 ml Output Total 280 ml Balance 600 ml 160 ml medications Current Medications Medications Dose Ordered Sig/Slim Route Start Time Stop Time Status Last Admin Dose Admin Sodium Chloride 1,000 ml @ 120 mls/hr Q8H20M IV 10/10/25 00:00 10/12/25 18:33 120 MLS/HR Acetaminophen 325 mg Q4HP PRN PO 10/10/25 00:00 Acetaminophen/ Hydrocodone Bitart 1 tab Q4HP PRN PO 10/10/25 00:00 10/12/25 20:50 1 TAB Temazepam 15 mg QHSP PRN PO 10/10/25 00:00 10/12/25 22:37 15 MG Ondansetron HCl 4 mg Q4HP PRN IV 10/10/25 00:00 Docusate Sodium 100 mg BIDPRN PRN PO 10/10/25 00:00 10/12/25 10:37 100 MG Morphine Sulfate 2 mg Q4HPRN PRN IV 10/10/25 00:00 10/13/25 10:03 2 MG Nitroglycerin 0.4 mg Q5MINP PRN SL 10/10/25 00:00 Morphine Sulfate 2 mg Q30M PRN IV 10/10/25 00:00 Diagnostic Test (Pha) 1 strip IQ4HR 10/10/25 20:00 10/13/25 08:55 1 STRIP Insulin Human Regular IQ4HR SC 10/10/25 20:00 10/12/25 20:31 2 UNITS Dextrose 50 ml UD PRN IV 10/10/25 16:30 Pantoprazole Sodium 40 mg DAILY IV 10/10/25 16:30 10/13/25 10:00 40 MG Sucralfate 1 gm QID@0600,1130,1700,2200 GT 10/10/25 17:00 10/12/25 22:37 1 GM Insulin Glargine 10 units DAILY@1000 SC 10/11/25 10:00 10/13/25 10:01 10 UNITS Metronidazole 100 ml @ 100 mls/hr Q8HR IV 10/10/25 16:45 10/13/25 05:09 100 MLS/HR objective General Appearance: alert, no distress HEENT: EOMI, PERRLA, normal external inspect of ears, no icterus, no nasal drainage Neck: no carotid bruit, no jugular venous distention (JVD), no lymphadenopathy Chest: normal thorax Respiratory: clear to auscultation, normal air movement Cardiovascular: regular rate and rhythm, no diastolic murmur, no jugular venous distention (JVD), no rub, no systolic murmur Abdominal: soft, no hepatomegaly, no mass, no splenomegaly, no tenderness Genitourinary: grossly normal external Musculoskeletal: no joint tenderness, no swelling Extremities: normal pulses, no calf tenderness, no clubbing, no cyanosis, no edema Skin: no bruising, no jaundice, no rash Neurological: alert, No focal deficit laboratory and microbiology Laboratory Tests 10/12/25 04:42 10/11/25 10:53 Test 10/12/25 04:42 Range/Units Serum Glucose 178 H 74-106 mg/dL Problem List 1. ADELA, ATN Monitor, IV fluids, nephrology consult 2. DM uncontrolled Monitor, insulin ss, hgb A1C 3. Benign essential HTN Monitor 4. Hepatic Steatosis Monitor, lipase level, lipid panel Assessment/Plan Subjective: Patient is awake and alert and reports abdominal pain when he eats or drinks. Objective: Patient is scheduled for EGD today. Patient was admitted for abdominal pain. CT imaging shows cholelithiasis. Patient was seen by general surgery with no signs of acute cholecystitis at this time. Plan: Continue PPI and Carafate. Dietary Evaluation [facility] Comments[facility] Diet Reinforce PO intake to meet 100% of his needs Monitor lab trend, GI and skin integrity Expected Outcomes/Goals: maintain body weight Plan discussed with: Patient, Other BLAZE BARRON NP Oct 13, 2025 11:11
[2025-10-13] MEDS ORDERED: SODIUM CHLORIDE LOCK 10 ML ONE (12:51)
[2025-10-13] MEDS ORDERED: PROPOFOL 10 MG/ML 20 ML IV ONE (12:51)
[2025-10-13] MEDS ORDERED: KETAMINE 50mg/ML 1ml syringe ONE (12:51)
[2025-10-13] MEDS ORDERED: MIDAZOLAM HCL 2MG/2ML 2ml VIAL (1mg/ml) ONE (12:51)
[2025-10-13] MEDS ORDERED: ONDANSETRON HCL 4 MG/2 ML VIAL ONE (12:51)
[2025-10-13] MEDS ORDERED: LIDOCAINE 1% INJ PF 5ML AMP ONE (12:51)
[2025-10-13] MEDS ORDERED: fentaNYL CITRATE 100 MCG/2 ML VL ONE (12:51)
[2025-10-13] MEDS ORDERED: HYDROmorphone HCL 2 MG/ML VL/or syr IV PRN ×2 (13:15)
[2025-10-13] MEDS ORDERED: MORPHINE SULFATE INJ 2 MG/ml SYRG IV PRN (13:15)
[2025-10-13] MEDS ORDERED: METOCLOPRAMIDE HCL 5MG/ml INJ 2ml VIAL IV PRN (13:15)
[2025-10-13] MEDS ORDERED: MORPHINE SULFATE 4 MG/ML SYR/VIAL IV PRN (13:15)
[2025-10-13] MEDS: KETOROLAC TROMETH 30 MG/ML 1ML VIAL IV ONE (13:15)
[2025-10-13] MEDS: ACCU-CHEK COMFORT CURVE STRIP VI ONE (13:15)
[2025-10-13] MEDS ORDERED: LIDOCAINE VISCOUS 2% 15ML UD ONE (13:19)
--- NOTE | 2025-10-13 17:34 | DVHOP2 ---
Operative Report DATE OF OPERATION: 10/13/25 PROCEDURE: Upper Endoscopy with biopsy. PREOPERATIVE INDICATION: The patient is a 60 -year-old male undergoing endoscopy for recurrent nausea and vomiting POSTOPERATIVE DIAGNOSES: 1. 2 cm sliding-type hiatal hernia with the acute grade C linear erosive esophagitis with ulcers extending into the distal 8-10 cm of the esophagus 2. Mild gastritis and moderate duodenitis with erosions otherwise normal e xamination up to the 2nd and 3rd part of the duodenum PROCEDURE PERFORMED BY: Toya Hayward GI NURSE: Hellen SCOPE: Olympus videoendoscope. ASA CLASS: 3. PREOPERATIVE MEDICATIONS: Mac sedation, Dr. Mckeon PROCEDURE IN DETAIL: After obtaining an informed consent, the patient was placed on left lateral decubitus position. The patient was then sedated with the above medications. A bite block was placed between his teeth. The endoscope was then passed through the oropharynx, into the esophagus, and through the stomach and pylorus up to the second and third part of the duodenum. The endoscope was then withdrawn. The 2nd and 3rd part of the duodenal were normal, duodenal bulb showed moderate duodenitis with superficial erosions The pre-pyloric area antrum and body showed mild gastritis. On retroflexion the fundus and cardia were normal. Duodenal and gastric biopsies were obtained. The endoscope was then withdrawn into the distal esophagus. Patient had a 2 cm sliding-type hiatal hernia with grade C erosive esophagitis with linear ulcers extending into the distal 8-10 cm of the esophagus Esophageal biopsies were obtained. The remaining proximal esophagus and oropharynx were unremarkable The patient tolerated the procedure well without difficulty. COMPLICATIONS : None SPECIMENS: Duodenal biopsies Gastric biopsies Esophageal biopsies a DISPOSITION: Transfer back to the floor Stable PLAN: 1. Await for biopsy result 2. Will place pt on Protonix 40 mg bid IV 3. Carafate suspension 1 g p.o. 4 times a day 4. Lifestyle and dietary modifications for GERD 5. Trial of nystatin swish and swallow 5 mL p.o. three times a day 6. Zofran as needed for nausea 7. Resume GI soft diet advance as tolerated TOYA HAYWARD MD Oct 13, 2025 17:34
[2025-10-13] MEDS: NYSTATIN (MOUTH-THROAT) 500,000 UNITS/5 ML SUSP MT SCH (18:13)
[2025-10-14] VITALS (8 sets, daily range): BP systolic 119–159; BP diastolic 67–92; PULSE 67–85; RESP 16–18; TEMP 97.6–98.7; O2SAT 97–100
--- NOTE | 2025-10-14 07:26 | DVHPN2 ---
Progress Note - Dictate Date Seen: Oct 14, 2025 Medical Necessity Reason Pt with a Central, PICC or Fol: No vital signs Vital Sign Date Time Temp Pulse Resp B/P (MAP) Pulse Ox O2 Delivery O2 Flow Rate FiO2 10/14/25 06:38 78 18 124/75 10/14/25 05:00 98.7 100 98.7 10/13/25 20:00 Room Air* 0 21 Total Intake and Output 10/13/25 10/13/25 10/14/25 15:00 23:00 07:00 Intake Total 10 ml 100 ml 800 ml Output Total 150 ml Balance 10 ml 100 ml 650 ml medications Current Medications Medications Dose Ordered Sig/Slim Route Start Time Stop Time Status Last Admin Dose Admin Sodium Chloride 1,000 ml @ 120 mls/hr Q8H20M IV 10/10/25 00:00 10/14/25 04:09 120 MLS/HR Acetaminophen 325 mg Q4HP PRN PO 10/10/25 00:00 Acetaminophen/ Hydrocodone Bitart 1 tab Q4HP PRN PO 10/10/25 00:00 10/14/25 04:45 1 TAB Temazepam 15 mg QHSP PRN PO 10/10/25 00:00 10/12/25 22:37 15 MG Ondansetron HCl 4 mg Q4HP PRN IV 10/10/25 00:00 Docusate Sodium 100 mg BIDPRN PRN PO 10/10/25 00:00 10/12/25 10:37 100 MG Morphine Sulfate 2 mg Q4HPRN PRN IV 10/10/25 00:00 10/14/25 06:38 2 MG Nitroglycerin 0.4 mg Q5MINP PRN SL 10/10/25 00:00 Morphine Sulfate 2 mg Q30M PRN IV 10/10/25 00:00 Diagnostic Test (Pha) 1 strip IQ4HR 10/10/25 20:00 10/14/25 04:00 1 STRIP Insulin Human Regular IQ4HR SC 10/10/25 20:00 10/13/25 16:51 3 UNITS Dextrose 50 ml UD PRN IV 10/10/25 16:30 Pantoprazole Sodium 40 mg DAILY IV 10/10/25 16:30 10/13/25 10:00 40 MG Sucralfate 1 gm QID@0600,1130,1700,2200 GT 10/10/25 17:00 10/14/25 05:38 1 GM Insulin Glargine 10 units DAILY@1000 SC 10/11/25 10:00 10/13/25 10:01 10 UNITS Metronidazole 100 ml @ 100 mls/hr Q8HR IV 10/10/25 16:45 10/14/25 05:37 100 MLS/HR Nystatin 5 ml QID MT 10/13/25 18:00 10/14/25 05:38 5 ML objective General Appearance: alert, no distress HEENT: EOMI, PERRLA, normal external inspect of ears, no icterus, no nasal drainage Neck: no carotid bruit, no jugular venous distention (JVD), no lymphadenopathy Chest: normal thorax Respiratory: clear to auscultation, normal air movement Cardiovascular: regular rate and rhythm, no diastolic murmur, no jugular venous distention (JVD), no rub, no systolic murmur Abdominal: soft, no hepatomegaly, no mass, no splenomegaly, no tenderness Genitourinary: grossly normal external Musculoskeletal: no joint tenderness, no swelling Extremities: normal pulses, no calf tenderness, no clubbing, no cyanosis, no edema Skin: no bruising, no jaundice, no rash Neurological: alert, No focal deficit laboratory and microbiology Laboratory Tests 10/12/25 04:42 10/11/25 10:53 Test 10/12/25 04:42 Range/Units Serum Glucose 178 H 74-106 mg/dL Problem List 1. ADELA, ATN Monitor, IV fluids, nephrology consult 2. DM uncontrolled Monitor, insulin ss, hgb A1C 3. Benign essential HTN Monitor 4. Hepatic Steatosis Monitor, lipase level, lipid panel Assessment/Plan Subjective: Patient is awake and alert. Objective: Patient was admitted for abdominal pain and intractable nausea and vomiting. Acute cholecystitis was ruled out. Patient is status post EGD. Patient has mild gastritis and erosive esophagitis. Patient is on Carafate and Protonix. Patient is also on nystatin, stating he feels better. Plan: Continue current treatment. Possible discharge plan for tomorrow. Medications to be sent to [facility] in [place]. Dietary Evaluation Review Comments: [facility]-45 Cardiac Diet Reinforce PO intake to meet 100% of his needs Monitor lab trend, GI and skin integrity Expected Outcomes/Goals: maintain body weight Plan discussed with: Patient, Other BLAZE BARRON NP Oct 14, 2025 07:26
--- NOTE | 2025-10-14 21:44 | DVHPN2 ---
Progress Note - Dictate Date Seen: Oct 14, 2025 Medical Necessity Reason Pt with a Central, PICC or Fol: No Subjective No new complaints Tolerating diet EGD showed severe esophagitis Pt states Nystatin swish and swallow helps vital signs Vital Sign Date Time Temp Pulse Resp B/P (MAP) Pulse Ox O2 Delivery O2 Flow Rate FiO2 10/14/25 21:28 85 16 153/86 10/14/25 21:00 98.5 99 98.5 10/14/25 20:00 Room Air* 0 21 Total Intake and Output 10/13/25 10/13/25 10/14/25 15:00 23:00 07:00 Intake Total 10 ml 100 ml 2240 ml Output Total 150 ml Balance 10 ml 100 ml 2090 ml medications Current Medications Medications Dose Ordered Sig/Slim Route Start Time Stop Time Status Last Admin Dose Admin Sodium Chloride 1,000 ml @ 120 mls/hr Q8H20M IV 10/10/25 00:00 10/14/25 11:15 120 MLS/HR Acetaminophen 325 mg Q4HP PRN PO 10/10/25 00:00 Acetaminophen/ Hydrocodone Bitart 1 tab Q4HP PRN PO 10/10/25 00:00 10/14/25 17:49 1 TAB Temazepam 15 mg QHSP PRN PO 10/10/25 00:00 10/12/25 22:37 15 MG Ondansetron HCl 4 mg Q4HP PRN IV 10/10/25 00:00 Docusate Sodium 100 mg BIDPRN PRN PO 10/10/25 00:00 10/12/25 10:37 100 MG Morphine Sulfate 2 mg Q4HPRN PRN IV 10/10/25 00:00 10/14/25 21:28 2 MG Nitroglycerin 0.4 mg Q5MINP PRN SL 10/10/25 00:00 Morphine Sulfate 2 mg Q30M PRN IV 10/10/25 00:00 Diagnostic Test (Pha) 1 strip IQ4HR 10/10/25 20:00 10/14/25 20:08 1 STRIP Insulin Human Regular IQ4HR SC 10/10/25 20:00 10/14/25 11:33 9 UNITS Dextrose 50 ml UD PRN IV 10/10/25 16:30 Pantoprazole Sodium 40 mg DAILY IV 10/10/25 16:30 10/14/25 10:35 40 MG Sucralfate 1 gm QID@0600,1130,1700,2200 GT 10/10/25 17:00 10/14/25 21:26 1 GM Insulin Glargine 10 units DAILY@1000 SC 10/11/25 10:00 10/14/25 10:00 10 UNITS Nystatin 5 ml QID MT 10/13/25 18:00 10/14/25 21:26 5 ML objective General: Well-built, afebrile, palor, mucosae are moist Cardiovascular: Regular S1 and S2. No murmurs, gallops or rubs. No JVD elevation. No pedal edema Respiratory: Normal B/L air entry on room air. Clear lung sounds on auscultation Abdomen: Soft, nontender, nondistended, normoactive bowel sounds, no rebound tenderness, no organomegaly, no masses Genitourinary: Deferred MSK/skin: Mobilizes 4 limbs. Skin is dry and warm Neurological: No motor, no sensitive deficits, normal speech. Pupils are isocoric and reactive. Psych/Mental Status: A/Ox3 laboratory and microbiology Laboratory Tests 10/12/25 04:42 10/11/25 10:53 Test 10/12/25 04:42 Range/Units Serum Glucose 178 H 74-106 mg/dL Problems(with codes): (1) Intractable abdominal pain (2) Hyponatremia (3) Contusion of hip, right (4) Generalized weakness (5) Acute cholecystitis Prognosis PLAN: 1. Await for biopsy result 2. Will place pt on Protonix 40 mg bid IV 3. Carafate suspension 1 g p.o. 4 times a day 4. Lifestyle and dietary modifications for GERD 5. Trial of nystatin swish and swallow 5 mL p.o. three times a day 6. Zofran as needed for nausea 7. Resume GI soft diet advance as tolerated Dietary Evaluation Review Comments: [facility]-45 Cardiac Diet Reinforce PO intake to meet 100% of his needs Monitor lab trend, GI and skin integrity Expected Outcomes/Goals: maintain body weight Plan discussed with: Patient, Other (Dr Persaud) TOYA MANRIQUEZ MD Oct 14, 2025 21:44
[2025-10-15 01:09] VITALS: BP 148/95; PULSE 70; RESP 16; TEMP 98.7; O2SAT 98
[2025-10-15 05:00] VITALS: BP 152/96; PULSE 79; RESP 18; TEMP 98; O2SAT 99
[2025-10-15 08:00] VITALS: PULSE 81; PULSE 95; O2SAT 99
[2025-10-15 09:00] VITALS: BP 137/75; PULSE 81; RESP 16; TEMP 98.6; O2SAT 99
[2025-10-15] MEDS ORDERED: PANT40TA2 PO (10:42)
[2025-10-15] MEDS ORDERED: NYS5LQ MT (10:42)
[2025-10-15] MEDS ORDERED: SUCR1SUS26 PO (10:42)
--- NOTE | 2025-10-15 11:33 | DVHDS2 ---
Discharge Summary Date of Admission Oct 09, 2025 at 23:52 Date of Discharge: Oct 15, 2025 Admitting Diagnosis abdominal pain Labs/Diagnostic Data: Laboratory Results Test 10/15/25 09:35 10/12/25 04:42 10/11/25 17:00 10/11/25 10:53 POC Glucose 251 mg/dl (70-106) Sodium Level 138 mmol/L (136-145) Potassium Level 3.5 mmol/L (3.5-5.1) Chloride Level 101 mmol/L (98-107) Carbon Dioxide Level 26 mmol/L (20-31) Anion Gap 11 (5-15) Blood Urea Nitrogen 6 mg/dL (9-23) Creatinine 1.13 mg/dL (0.700-1.30) Glomerular Filtration Rate Calc 73 mL/min (>90) BUN/Creatinine Ratio 5.3 (10.0-20.0) Serum Glucose 178 mg/dL (74-106) Calcium Level 8.2 mg/dL (8.7-10.4) Total Bilirubin 1.3 mg/dL (0.2-1.0) Aspartate Amino Transferase (AST) 207 U/L (13-40) Alanine Aminotransferase (ALT) 87 U/L (7-40) Alkaline Phosphatase 91 U/L (46-116) Total Protein 5.8 g/dL (5.7-8.2) Albumin 3.1 g/dL (3.2-4.8) Influenza Type A Antigen Negative (Negative) Influenza Type B Antigen Negative (Negative) SARS-CoV-2 Antigen (Rapid) Negative (NEGATIVE) White Blood Count 4.4 10^3/uL (4.4-10.8) Red Blood Count 3.41 10^6/uL (4.5-5.90) Hemoglobin 11.0 g/dL (13.5-17.5) Hematocrit 32.4 % (41.0-53.0) Mean Corpuscular Volume 95.0 fL (80.0-100.0) Mean Corpuscular Hemoglobin 32.3 pg (28.0-32.0) Mean Corpuscular Hemoglobin Concent 34.0 g/dL (32.0-36.0) Red Cell Distribution Width 12.4 % (11.8-14.3) Platelet Count 107 10^3/uL (140-450) Mean Platelet Volume 8.4 fL (6.9-10.8) Neutrophils (%) (Auto) 57.8 % (37.0-80.0) Lymphocytes (%) (Auto) 30.3 % (10.0-50.0) Monocytes (%) (Auto) 11.0 % (0.0-12.0) Eosinophils (%) (Auto) 0.7 % (0.0-7.0) Basophils (%) (Auto) 0.2 % (0.0-2.0) Neutrophils # (Auto) 2.6 10 ^3/uL (1.6-8.6) Lymphocytes # (Auto) 1.3 10 ^3/uL (0.4-5.4) Monocytes # (Auto) 0.5 10 ^3/uL (0-1.3) Eosinophils # (Auto) 0 10 ^3/uL (0-0.8) Basophils # (Auto) 0 10 ^3/uL (0-0.2) Nucleated Red Blood Cells 0.1 % Magnesium Level 1.9 mg/dL (1.6-2.6) C-Reactive Protein High Sensitivity 0.51 mg/dL (<1.0) Thyroid Stimulating Hormone (TSH) 2.37 uIU/mL (0.55-4.78) Plasma/Serum Blood Alcohol < 3.0 mg/dL (<10) Test 10/10/25 07:34 10/10/25 05:53 10/09/25 12:30 Hemoglobin A1c 7.6 % A1C (<5.7) Triglycerides Level 317 mg/dL (< 150) Cholesterol Level 112 mg/dL (< 200) LDL Cholesterol 37 mg/dL (< 100) HDL Cholesterol 16 mg/dL (40-59) Lipase 15 U/L (12-53) Beta-Hydroxybutyric Acid > 4.500 mmol/L (< 0.4) Urine Color Light-yellow (Yellow) Urine Clarity Clear (Clear) Urine pH 5.5 (5.0-9.0) Urine Specific Morton 1.016 (1.001-1.035) Urine Protein Trace (Negative) Urine Ketones 1+ (Negative) Urine Blood Negative /uL (Negative) Urine Nitrite Negative (Negative) Urine Bilirubin Negative (Negative) Urine Urobilinogen Normal mg/dL (Negative) Urine Leukocyte Esterase Negative /uL (Negative) Urine RBC <1 /hpf (0 - 3) Urine Microscopic WBC 1 /HPF (0-3) Urine Squamous Epithelial Cells None seen /hpf (<5) Urine Bacteria None seen /hpf (None Seen) Urine Glucose Normal mg/dL (Normal) Other Laboratory Tests 10/12/25 04:42 10/11/25 10:53 Brief Hx & Hospital Course: Patient was admitted for evaluation and management of abdominal pain associated with intractable nausea and vomiting. Acute cholecystitis was ruled out during hospitalization. An esophagogastroduodenoscopy (EGD) revealed mild gastritis and erosive esophagitis, which were likely the cause of his presenting symptoms. The patient was also started on Nystatin for possible fungal involvement. During the hospital course, his symptoms improved with supportive therapy. He received IV fluids for acute kidney injury secondary to acute tubular necrosis (ATN), with renal function subsequently improving. At discharge, the patient reports feeling significantly better and is tolerating oral intake. Protonix 40 mg, Sucralfate, and Nystatin were prescribed and sent to his pharmacy. He is advised to follow up with gastroenterology as an outpatient for biopsy results and with his primary care provider within one week of discharge. The patient was instructed to return to the emergency room for any worsening abdominal pain, nausea, vomiting, or new symptoms. Condition at Discharge: Fair Final Diagnosis/Problems List 1. ADELA, ATN Monitor, IV fluids, nephrology consult 2. DM uncontrolled Monitor, insulin ss, hgb A1C 3. Benign essential HTN Monitor 4. Hepatic Steatosis Monitor, lipase level, lipid panel 5. Esophagitis 6. gastritis Discharge Disposition: Home Discharge Instruct/Medications Diet: Cardiac 2g Na,low cholest Activity: No Restrictions, As Tolerated Follow Up/Referral: PCP within 1 week Scheduled Nystatin (Mouth-Throat) (Mycostatin (Mouth-Throat)), 5 ML MT QID Pantoprazole Sodium Sesquihydr (Protonix), 40 MG PO DAILY Sucralfate (Carafate Susp), 1 GM PO QID@0600,1130,1700,2200 Scheduled PRN Ibuprofen (Ibuprofen), 1 TAB PO TID PRN Discharge Statement: "Patient was advised to return to the ER or call 911 if any headaches, dizziness, shortness of breath, chest pain, abdominal pain, bleeding, fevers, or worsening of medical condition. Patient was counseled about treatment plan, medications, possible side effects, patientverbalized understanding. All questions were answered to the best of my ability. This discharge took greater then 30 minutes in planning, reviewing documentation, counseling the patient, and discussing with other team members." ASSESSMENT ASSESSMENT Assessment 1. ADELA, ATN Monitor, IV fluids, nephrology consult 2. DM uncontrolled Monitor, insulin ss, hgb A1C 3. Benign essential HTN Monitor 4. Hepatic Steatosis Monitor, lipase level, lipid panel 5. Esophagitis 6. gastritis BUBBA TRIPLETT [facility] Oct 15, 2025 11:33
[2025-10-15 11:41] VITALS: BP 137/75; PULSE 81; RESP 16; TEMP 98.6; O2SAT 99
--- NOTE | 2025-10-15 16:16 | DVHPN2 ---
Progress Note Date Seen: Oct 15, 2025 Resident Creating Document: SHAKA AMADO RESIDENT Medical Necessity Reason Pt with a Central, PICC or Fol: No Subjective Review of Systems Denies any active complaint. Patient is tolerating p.o. diet. Continue nystatin. Objective vital signs Vital Sign Date Time Temp Pulse Resp B/P (MAP) Pulse Ox O2 Delivery O2 Flow Rate FiO2 10/15/25 11:41 98.6 81 16 99 10/15/25 09:00 137/75 (95) 10/15/25 08:00 Room Air* 0 21 Total Intake and Output 10/14/25 10/14/25 10/15/25 15:00 23:00 07:00 Intake Total 720 ml 910 ml Balance 720 ml 910 ml Examination General: Well-built, afebrile, palor, mucosae are moist Cardiovascular: Regular S1 and S2. No murmurs, gallops or rubs. No JVD elevation. No pedal edema Respiratory: Normal B/L air entry on room air. Clear lung sounds on auscultation Abdomen: Soft, nontender, nondistended, normoactive bowel sounds, no rebound tenderness, no organomegaly, no masses Genitourinary: Deferred MSK/skin: Mobilizes 4 limbs. Skin is dry and warm Neurological: No motor, no sensitive deficits, normal speech. Pupils are isocoric and reactive. Psych/Mental Status: A/Ox3 laboratory and microbiology Laboratory Tests 10/12/25 04:42 10/11/25 10:53 Test 10/12/25 04:42 Range/Units Serum Glucose 178 H 74-106 mg/dL Labs and/or images reviewed: Labs reviewed by me, Image(s) reviewed by me Problem List/Assessment/Plan Problem List/Assessment/Plan Nausea and vomiting in the setting of uncontrolled diabetes/DKA Acute kidney injury likely VMN Uncontrolled hypertension Diabetes mellitus type 2-A1c 7.6 Likely chronic pancreatitis Transaminitis likely steatosis Dyslipidemia Liver ultrasound shows No gallstone identified. No sonographic evidence of acute cholecystitis. No sonographic reagan's sign. Diffusely echogenic liver parenchyma. This may be secondary to steatosis or another diffuse hepatic process. Correlate clinically and with liver function tests. CT abdomen shows Mildly distended gallbladder. Ultrasound recommended for further assessmen, Hepatic steatosis. Sequelae of chronic pancreatitis. Plan/Recommendation Patient is stable to be discharged. Follow up outpatient with GI, for biopsy results. Continue Protonix 40 mg b.i.d. and Carafate 1 g p.o. 4 times a day. Nystatin swish and swallow trial 5 mL p.o. thrice daily Recommend diabetic education and medication compliance Rest of management per primary team Plan discussed with patient in which all questions have been answered Case discussed with Dr. Hayward Plan discussed with: Patient Dietary Evaluation [facility] Comments[facility] Reinforce PO intake to meet 100% of his needs Monitor lab trend, GI and skin integrity Expected Outcomes/Goals: maintain body weight SHAKA AMADO RESIDENT Oct 15, 2025 16:16
== END 2025-10-15 13:15 | disposition home or self-care (01) | DRG 241 ==
LOC: EDBD 11:16 → ER 11:16 → OVERFLOW 23:52 → TELE-WESTW 10-10 19:53
PROVIDERS: ADMIT Internal Medicine; ATTEND Internal Medicine
PROC: 0DB58ZX Excision of Esophagus, Via Natural or Artificial Opening Endoscopic, Diagnostic (ICD-10-PCS; 2025-10-13)
PROC: 0DB68ZX Excision of Stomach, Via Natural or Artificial Opening Endoscopic, Diagnostic (ICD-10-PCS; 2025-10-13)
PROC: 0DB98ZX Excision of Duodenum, Via Natural or Artificial Opening Endoscopic, Diagnostic (ICD-10-PCS; principal; 2025-10-13 13:21)
DX: K29.70 Gastritis, unspecified, without bleeding (principal); N17.0 Acute kidney failure with tubular necrosis; E11.10 Type 2 diabetes mellitus with ketoacidosis without coma; K76.0 Fatty (change of) liver, not elsewhere classified; I10 Essential (primary) hypertension; E11.40 Type 2 diabetes mellitus with diabetic neuropathy, unspecified; Z20.822 Contact with and (suspected) exposure to COVID-19; K44.9 Diaphragmatic hernia without obstruction or gangrene; K22.10 Ulcer of esophagus without bleeding; K29.80 Duodenitis without bleeding; K86.1 Other chronic pancreatitis; E78.5 Hyperlipidemia, unspecified; Z87.891 Personal history of nicotine dependence; Z83.3 Family history of diabetes mellitus
CPT/HCPCS: 36415; 43239; 71045; 74176; 76705; 80048; 80053; 80061; 80320; 81001; 82010; 82962; 83036; 83690; 83735; 84443; 85025; 86141; 87426; 87804; 96361; 96365; 96375; 96376; 99291; G0378; J1815; J2250; J2405; J2470; J2704; J3490